=== PATIENT | female | born 1955 | race Caucasian/White ===

== ENCOUNTER → 2018-05-13 09:08 | Outpatient (CLI) | payer OTHER, SELFPAY ==
[2018-05-13 10:17] LABS: Color, Urine Yellow (Yellow); Glucose, Dipstick Normal (Normal); Ketone-Dipstick Negative (Negative); Leukocyte Esterase-Dipstick 25 /ul (Negative); Nitrite-Dipstick Negative (Negative); Occult Blood-Urine Negative /ul (Negative); Protein-Dipstick Negative (Negative); Urine Bilirubin Dipstick Negative (Negative); Urine Clarity Clear (Clear); Urine Urobilinogen Normal (Normal)
[2018-05-13 10:38] LABS: Absolute Lymphocyte Count 1.46 X10^3/ul (0.83-4.51); Absolute Neutrophil Count 6.3 X10^3/uL (2.0-7.7); Basophil# 0.02 X10^3/uL; Basophil% 0.2 % (0-1); Eosinophil# 0.03 X10^3/uL; Eosinophils% 0.4 % (0-5); Hematocrit 44.2 % (37-47); Lymphocyte # 1.46 X10^3/ul (4.0); Lymphocyte % 17.3 % (19-41); Mean Corp Hgb Conc 31.7 g/gl (32-36); Mean Corpuscular Hgb 30.2 pg (27.0-32.0); Mean Corpuscular Volume 95.5 fL (81-99); Mean Platelet Vol. 11.7 fl (6.2-12.0); Monocyte# 0.65 X10^3/uL; Monocyte% 7.7 % (0-10); Neutrophil # 6.29 X10^3/uL (2.7-7.7); Neutrophil % 74.3 % (47-70); Platelet Count 249 K/mm3 (150-450); RBC Distribution Width CV 13.4 % (11.6-14.6); RBC Distribution Width SD 46.7 fl (35.1-43.9); Red Blood Count 4.63 M/mm3 (4.2-5.4); White Blood Count 8.5 K/mm3 (4.4-11.0)
[2018-05-13 10:39] LABS: POSITIVE COUNT NO; POSITIVE DIFFERENTIAL NO; POSITIVE MORPHOLOGY NO
[2018-05-13 10:50] LABS: ALB/GLOB Ratio 1.2 RATIO (0.9-2.4); AST(SGOT) 14 U/L (15-37); Alanine Aminotransfer ALT/SGPT 27 U/L (13-56); Albumin, Serum 3.8 g/dL (3.2-5.0); Alkaline Phosphatase 108 U/L (45-117); Anion Gap 7 (5-15); BUN 11 mg/dL (7-18); Calcium,Total 8.7 mg/dL (8.5-10.1); Chloride 110 mmol/L (98-107); Cholesterol 197 mg/dL (200); Creatinine, Serum 0.78 mg/dL (0.55-1.02); EST Glomerular Filtration Rate 79 mL/min (>60); Est Glom Filt Rate - Afr Amer 96 mL/min (>60); Globulin 3.2 g/dL (2.2-4.2); Glucose 90 mg/dL (74-106); High Density Lipoprotein 87 mg/dL; Potassium 3.8 mmol/L (3.5-5.1); Sodium Level 143 mmol/L (136-145); Triglycerides 51 mg/dL; Very Low Density Lipoprotein 10 mg/dL (5-40)
== END ==
PROVIDERS: Family Provider Family Medicine; PCP Family Medicine; Referring Provider Family Medicine; Visit Provider Family Medicine
DX: Z12.31 Encounter for screening mammogram for malignant neoplasm of breast (principal); Z00.00 Encounter for general adult medical examination without abnormal findings
CPT/HCPCS: 36415; 80053; 80061; 81002; 85025

== ENCOUNTER → 2018-06-20 12:33 | Outpatient (CLI) | payer OTHER, SELFPAY ==
--- NOTE | 2018-06-20 12:37 | BI_ITS ---
MAMMOGRAPHY - BILATERAL SCREENING REASON FOR EXAM: Female, 63 years old. Routine annual screening examination. PERTINENT HISTORY: Aunt with breast cancer. Bilateral breast implants. TECHNIQUE: Digital bilateral breast dagmar (3D mammographic acquisition) in the CC and MLO projections. 2-D mediolateral oblique (MLO) and craniocaudad (CC) views of both breasts were obtained. CAD: Full Field Digital Mammography with Computer Added Detection was performed. COMPARISON: Comparison is made with prior examination dated April 13, 2016 and April 09, 2014. FINDINGS: Breast Composition: There are scattered areas of fibroglandular density. There are no dominant masses or suspicious calcifications. Stable appearance of the bilateral breast implants. No other significant abnormalities are identified. There has been no significant change since the prior study. BI/SCREENING MAMM (CAD), BILAT IMPRESSION: Stable bilateral screening mammogram. Yearly follow-up mammogram recommended. (A) ASSESSMENT CATEGORY: BIRADS Category 2: Benign. A letter regarding these results will be sent to the patient by the facility within 30 days. Approximately 10% of breast cancers are not detected by mammography. A normal mammogram should not delay biopsy of a clinically suspicious abnormality. [id number] Electronically Signed: Moo Shook MD at 13:37 EST , Service support ,
== END ==
PROVIDERS: Family Provider Family Medicine; PCP Family Medicine; Referring Provider Family Medicine; Visit Provider Family Medicine
DX: Z12.31 Encounter for screening mammogram for malignant neoplasm of breast (principal)
CPT/HCPCS: 77063; 77067

== ENCOUNTER 2021-04-12 15:31 | Emergency (ER) | payer OTHER, SELFPAY ==
[2021-04-12 15:32] VITALS: BP 167/91; PULSE 83; RESP 18; TEMP 36.3; O2SAT 100; BMI 25.8
--- NOTE | 2021-04-12 15:36 | ED.RN ---
PT STATED THAT SHE WAS NOT GOING TO WAIT TO BE SEEN SHE WOULD GO HOME AND WALK. PT WALKED OUT OF DEPARTMENT WITH NO ISSUES
== END 2021-04-12 15:40 | disposition left against medical advice (07) ==
LOC: ED 15:47
PROVIDERS: PCP Family Medicine
DX: Z53.21 Procedure and treatment not carried out due to patient leaving prior to being seen by health care provider (principal)

== ENCOUNTER 2021-04-12 17:32 | Inpatient (IN) | payer OTHER, SELFPAY ==
[2021-04-12 17:33] VITALS: BP 95/57; PULSE 85; RESP 17; TEMP 36; O2SAT 100; BMI 25.8
[2021-04-12 17:42] VITALS: BP 95/57; PULSE 85; RESP 17; TEMP 36; O2SAT 100
[2021-04-12 17:59] LABS: Absolute Lymphocyte Count 2.57 X10^3/uL (0.83-4.51); Absolute Neutrophil Count 8.6 X10^3/uL (2.0-7.7); Basophil# 0.07 X10^3/uL; Basophil% 0.6 % (0-1); Eosinophil# 0.29 X10^3/uL; Eosinophils% 2.3 % (0-5); Hemoglobin 14.1 g/dL (12.0-15.0); Lymphocyte # 2.57 X10^3/ul (0.83-4.51); Lymphocyte % 20.5 % (19-41); Mean Corpuscular Hgb 31.1 pg (27.0-32.0); Mean Corpuscular Volume 96.9 fL (81-99); Mean Platelet Vol. 11.8 fl (6.2-12.0); Monocyte# 0.92 X10^3/uL; Monocyte% 7.3 % (0-10); NRBC Flagged by Analyzer 0 % (0-5); Neutrophil # 8.56 X10^3/uL (2.7-7.7); Neutrophil % 68.3 % (47-70); Platelet Count 245 K/mm3 (150-450); RBC Distribution Width CV 13.6 % (11.6-14.6); RBC Distribution Width SD 48.3 fl (35.1-43.9); Red Blood Count 4.54 M/mm3 (4.2-5.4); White Blood Count 12.5 K/mm3 (4.4-11.0)
[2021-04-12 18:15] LABS: ALB/GLOB Ratio 1.1 RATIO (0.9-2.4); AST(SGOT) 221 U/L (15-37); Alanine Aminotransfer ALT/SGPT 330 U/L (13-56); Albumin, Serum 3.6 g/dL (3.2-5.0); Alkaline Phosphatase 342 U/L (45-117); Anion Gap 7 (5-15); BUN 19 mg/dL (7-18); Calcium,Total 9.3 mg/dL (8.5-10.1); Chloride 108 mmol/L (98-107); Creatinine, Serum 0.83 mg/dL (0.55-1.02); EST Glomerular Filtration Rate 74 mL/min (>60); Est Glom Filt Rate - Afr Amer 89 mL/min (>60); Globulin 3.3 g/dL (2.2-4.2); Glucose 124 mg/dL (74-106); Potassium 3.8 mmol/L (3.5-5.1); Protein, Total 6.9 g/dL (6.4-8.2); Sodium Level 142 mmol/L (136-145)
--- NOTE | 2021-04-12 18:43 | CT_ITS ---
STUDY: CT ABDOMEN AND PELVIS WITH CONTRAST REASON FOR EXAM: Female, 66 years old. ABD PAIN RADIATION DOSAGE (If Supplied By Facility): CTDIvol = ( 14.59 ) mGy, DLP = ( 760.26 ) mGycm TECHNIQUE: Transaxial images were obtained from the dome of the diaphragm to the symphysis pubis without oral contrast. Oral and amp; IV Gastrografin and amp; 100mL Isovue-300 was administered. Sagittal and coronal images were reconstructed. Individualized dose optimization techniques were used for this CT. COMPARISON: None. FINDINGS: The visualized lung bases are unremarkable. The visualized portions of the heart are within normal limits. Normal liver. Cholelithiasis within a distended gallbladder. Trace pericholecystic fluid. There is dilatation of the extrahepatic biliary system. Possible stone in the distal common bile duct. Granulomatous calcifications in the spleen. Normal pancreas. Hypoattenuated left adrenal 1 cm nodule. Normal right kidney. Normal left kidney. Normal visualized stomach. Normal small intestine. Diverticulosis of the colon. The appendix is visualized and appears normal. Normal abdominal aorta. Normal inferior vena cava. Normal retroperitoneum. Normal urinary bladder. Normal abdominal wall. Degenerative vertebral changes. Scoliosis. CT/Abdomen/Pelvis WITH Contrast IMPRESSION: Distended gallbladder with cholelithiasis. Trace pericholecystic fluid. Mildly dilated common bile duct with possible choledocholithiasis. Electronically Signed: Antony Otero DO at 20:55 EST Tel [phone], Service support ,
[2021-04-12] MEDS: Morphine 4 MG/ML Syringe IV (18:45)
[2021-04-12] MEDS: Ondansetron 4 MG/2 ML Vial IV (18:45)
[2021-04-12] MEDS: Mag Hydrox/Al Hydrox/Simeth 30 ML UDC PO (18:46)
[2021-04-12 19:19] VITALS: BP 113/81; PULSE 76; RESP 15; O2SAT 98
--- NOTE | 2021-04-12 19:25 | ED.RN ---
WHEN PT ARRIVED SHE AMBULATED INTO THE ER YELLING, GROANING AND REFUSING ANY TYPE OF ASSISTANCE. SHE STATED SHE STATED SHE WAS BACK AND THE PAIN WAS UNBEARABLE. PT REFUSED A WC AND WAS LEAD INTO THE TRIAGE ROOM. PT KEPT PACING AND YELLING THROUGH OUT THE TRIAGE PROCESS. PTS CAME IN DEMANDING SOMETHING BE DONE IMMEDIATELY. EXPLAINED THE PROCESS AND AND WAS HOSTILE AND STATED IT WAS UNACCEPTABLE. WHILE THIS NURSE WAS FINISHING UP THE TRIAGE QUESTIONS, THE MEDIC CAME IN AND STARTED THE IV AND VALENTE BLOODWORK. EXPLAINED TO THE MEDICATION CAN NOT BE GIVEN UNTIL ORDERED BY A PHYSICIAN. REMAINED ANGRY AND PT CONTINUED TO YELL AND REFUSED TO FOLLOW BASIC INSTRUCTIONS. VERBAL ORDER FOR GI COCKTAIL WAS OBTAINED AND GIVEN TO PT. PT WAS NOT HAPPY WITH THIS PLAN. EXPLAINED THIS WAS THE BEST WE ARE ABLE TO DO AT THIS TIME. PT AND WERE INSTRUCTED TO HAVE A SEAT IN THE HALLWAY. PT REFUSED AND ATTEMPTED TO ASSIGNMENT EDITOR THE ENTRANCE WAY AND YELL. EXPLAINED THAT WAS NOT ACCEPTABLE AND THE HRO OFFICER ASSISTED THEM TO A PLACE ALONG THE HALLWAY. SHORTLY THERE AFTER THE PT WAS BACK UP TOWARD THE ENTRANCE IN THE HALLWAY YELLING AND GROANING. IN ADDITION THE PROCEEDED TO TALK NEGATIVELY TO THE PTS AROUND HIM TO THE POINT THAT ANOTHER PT AND FAMILY LEFT WITHOUT BEING SEEN. THIS NURSE APPROACHED THE ASKING WHAT THE CONCERN WAS AND HE STATED THIS WAS TORTURE AND THAT WE DID NOT KNOW WHAT WE WERE DOING. EXPLAINED THE PROCESS AGAIN AT WHICH TIME HE INTERRUPTED. STATED THERE SHOULD BE A TRIAGE IN PLACE AND THAT THERE IS NO WAY ANYONE SHOULD GO BACK BEFORE HIS . AGAIN EXPLAINED TESTING WAS STARTED AND HE RESPONDED STATED EXCUSES ARE FOR LOSERS!. INFORMED THE THEY ARE HERE ON THERE OWN CHOOSING AND THAT OTHER HOSPITALS AROUND ARE IN THE SAME SITUATION. CONTINUED TO CARRY ON WHILE WAS YELLING AND GROANING. AT THIS POINT HRO STEPPED IN AND THIS NURSE WENT BCK TO TRIAGE TO MANAGE THE NEXT PATIENT.
[2021-04-12 20:39] VITALS: BP 130/64; PULSE 82; RESP 18; O2SAT 99
--- NOTE | 2021-04-12 21:01 | EDS_ITS ---
HPI History of Present Illness Chief Complaint: Abd Pain Informant: patient and spouse/S.O. Onset/Context/Timing Onset: Weeks Timing: Waxes and wanes Current Severity: Severe Maximum Severity: Severe Narrative Narrative: Patient presents with epigastric abdominal pain and right upper quadrant pain. Reportedly for the last 2 weeks patient has developed right upper quadrant pain after eating. She ate around 1 PM this afternoon and then developed worsened right upper quadrant pain. She had trouble getting a comfortable position. She denies having fever or chills. She has nausea but no vomiting. She has had diarrhea. PFSH PFSH Medical History no medical history no medical history Allergy/AdvReac Type Severity Reaction Status Date / Time amoxicillin Allergy Hives Verified 04/12/21 15:33 Surgical History no surgical history no surgical history Social History Smoking Status: Never smoker ROS ROS ED Constitutional Constitutional ED: Denies chills or fever(s) Eyes Eyes: Denies change in vision ENT ENT ED: Denies sore throat Cardiovascular Cardiovascular: Denies chest pain Respiratory/Chest Respiratory/Chest: Denies cough or dyspnea Gastrointestinal Gastrointestinal: Reports abdominal pain, diarrhea and nausea; Denies vomiting Genitourinary Genitourinary ED: Denies dysuria Musculoskeletal Musculoskeletal: Denies back pain Integumentary Denies rash Neurologic Neurologic: Denies headache(s) or weakness Allergic/Immunologic Allergic/Immunologic ED: Denies urticaria EXAM Physical Exam Const Vital Signs: 04/12/21 17:33 04/12/21 17:42 04/12/21 19:19 Temperature 96.8 F L 96.8 F L Temperature Source Temporal Temporal Pulse Rate 85 85 76 Respiratory Rate 17 17 15 Blood Pressure 95/57 L 95/57 L 113/81 H Blood Pressure Mean 69 69 91 Pulse Ox 100 100 98 Oxygen Delivery Method Room Air Room Air Room Air 04/12/21 20:39 Temperature Temperature Source Pulse Rate 82 Respiratory Rate 18 Blood Pressure 130/64 H Blood Pressure Mean 86 Pulse Ox 99 Oxygen Delivery Method Room Air Positive well nourished and well developed General Appearance ED: well developed HEENT Reports moist mucous membranes Eyes PERRL and EOMs intact bilaterally Chest Wall inspection of chest normal and palpation of chest normal Resp normal respiratory effort and clear to auscultation bilaterally Cardio regular rate and regular rhythm GI Auscultation: hypoactive bowel sounds Palpation: soft and tender epigastric and RUQ Extremity normal to inspection Neuro oriented x3 Sensorium / Orientation: alert Psych Mood & Affect: anxious Skin no rashes or lesions noted MDM MDM MDM Narrative Medical decision making narrative: Lab work and CT obtained after discussion with From triage. Patient was given GI cocktail as well as morphine and Zofran. Lab Data Attestation: I reviewed the patient's lab results. Labs: Laboratory Results - last 24 hr 04/12/21 04/12/21 17:40 17:40 WBC 12.5 H RBC 4.54 Hgb 14.1 Hct 44.0 MCV 96.9 MCH 31.1 MCHC 32.0 RDW Std Deviation 48.3 H RDW Coeff of Noé 13.6 Plt Count 245 MPV 11.8 Immature Gran % (Auto) 1.000 H Neut % (Auto) 68.3 Lymph % (Auto) 20.5 [place] % (Auto) 7.3 Eos % (Auto) 2.3 Baso % (Auto) 0.6 Absolute Neuts (auto) 8.6 H Absolute Lymphs (auto) 2.57 Nucleated RBC % 0 Sodium 142 Potassium 3.8 Chloride 108 H Carbon Dioxide 27.0 Anion Gap 7 BUN 19 H Creatinine 0.83 Estim Creat Clear Calc 64.10 Est GFR (MDRD) Af Amer 89 Est GFR (MDRD) Non-Af 74 BUN/Creatinine Ratio 23.0 H Glucose 124 H Calcium 9.3 Total Bilirubin 1.90 H AST 221 H ALT 330 H Alkaline Phosphatase 342 H Total Protein 6.9 Albumin 3.6 Globulin 3.3 Albumin/Globulin Ratio 1.1 Radiography Diagnostic Testing: Clinical Impression(s) from Imaging Studies Abdomen/Pelvis CT 04/12/21 18:43 IMPRESSION: Distended gallbladder with cholelithiasis. Trace pericholecystic fluid. Mildly dilated common bile duct with possible choledocholithiasis. Electronically Signed: Antony Otero DO at 20:55 EST Tel [phone], Service support , Treatment and Re-Evaluation Comments:: Lab work reveals elevated white count at 12.[address] scan reveals distended gallbladder with cholelithiasis and trace pericholecystic fluid. Patient does have an allergy to amoxicillin and is therefore given Cipro and Flagyl. I will speak with surgery. Discharge Plan Triage Chief Complaint: Abd Pain ED Provider: Flor Bentley Dx/Rx/DC Orders Clinical Impression: Acute cholecystitis Primary Care Provider: Chava Milton Referrals: Chava Milton MD [Primary Care Provider] - Disposition Disposition: Acute [facility]
--- NOTE | 2021-04-12 21:09 | US_ITS ---
STUDY: ABDOMINAL ULTRASOUND - RIGHT UPPER QUADRANT REASON FOR VISIT: Female, 66 years old cholecystitis TECHNIQUE: Ultrasound evaluation of the right upper quadrant was performed with real-time and static garcia-scale imaging. TECHNICAL QUALITY: Adequate. COMPARISON: None. FINDINGS: Liver: The liver measures 13.5 cm. There is normal echogenicity of the liver. The bile ducts are within normal limits. There is hepatic color flow. The direction of portal flow is hepatopetal. There is no demonstrated mass lesion. Gallbladder: Distended gallbladder. The gallbladder wall measures 3 mm. There is a negative sonographic Green''s sign. There is trace pericholecystic fluid. There are gallstones. Common Bile Duct (C.B.D.): The common bile duct measures 4 mm. Pancreas: Normal size of the head, body and tail of the pancreas. There is normal echogenicity of the pancreas. There is no demonstrated pancreatic mass or cyst. Right Kidney: Normal size of the right kidney. The right kidney measures 10.8 x 4.8 x 4.4 cm. Normal renal cortex. The right cortex measures 1.1 cm. There is no demonstrated renal mass or cyst. There is no right hydronephrosis. US/Gallbladder IMPRESSION: Cholelithiasis. Trace pericholecystic fluid. Electronically Signed: Antony Otero DO at 22:35 EST Tel [phone], Service support ,
[2021-04-12] MEDS: Ciprofloxacin 400 MG/200 ML BAG 200 MG IV (21:43)
[2021-04-12 21:50] LABS: Lipase 99 U/L (73-393)
[2021-04-12 22:10] VITALS: BP 128/74; PULSE 79; RESP 18; TEMP 36.2; O2SAT 99
--- NOTE | 2021-04-12 22:39 | PCM.HP.STD ---
HPI - General General Date of Admission: 04/12/21 HPI Narrative STEVIE HOGAN, is a 66 F who presents to the ER due to epigastric pain, nausea. Patient states she has had episodes after eating for the past 2 to 3 weeks which involved epigastric pain and some nausea along with some abdominal bloating. Patient states she has never had the pain not go away like today. Patient did get some morphine in the ER which she states did not do anything however with some time patient denies any pain currently. Patient had a CT abdomen pelvis showed multiple gallstones along with a dilated extrahepatic biliary duct likely stone in the distal CBD. Ultrasound report pending as well wall appears to be within normal limits the CBD was called within normal limits as well however CT abdomen pelvis reviewed and I personally measured 9 mm. Patient has a white blood cell count of 12.5 and elevated liver functions with a total bilirubin of 1.9 and elevated AST/ALT/alk phos. PFSH Medical History no medical history Allergy/AdvReac Type Severity Reaction Status Date / Time amoxicillin Allergy Hives Verified 04/12/21 15:33 Surgical History (Updated 04/12/21 @ 22:[address] Amada Wallace MD) S/P bilateral breast implants S/P plastic surgery Surgical History no surgical history Social History Smoking Status: Never smoker Vital Signs Vital Signs Vital Signs: 04/12/21 17:33 04/12/21 17:42 04/12/21 19:19 Temperature 96.8 F L 96.8 F L Temperature Source Temporal Temporal Pulse Rate 85 85 76 Respiratory Rate 17 17 15 Blood Pressure 95/57 L 95/57 L 113/81 H Blood Pressure Mean 69 69 91 Pulse Ox 100 100 98 Oxygen Delivery Method Room Air Room Air Room Air 04/12/21 20:39 04/12/21 22:10 Temperature 97.2 F L Temperature Source Temporal Pulse Rate 82 79 Respiratory Rate 18 18 Blood Pressure 130/64 H 128/74 H Blood Pressure Mean 86 92 Pulse Ox 99 99 Oxygen Delivery Method Room Air Room Air Weight Weight: 160 lb Body Mass Index (BMI) 25.8 Physical Exam Const alert, oriented x3 and no apparent distress HEENT normocephalic and head/scalp atraumatic Resp normal respiratory effort Cardio regular rate GI soft to palpation and non-tender; Negative for non-distended Palpation: Negative for guarding Extremity no clubbing, cyanosis or edema Neuro CN's II-XII intact bilaterally Psych mental status grossly normal Results Lab / Micro Data Result Diagrams: 04/12/21 17:40 04/12/21 17:40 Labs: Laboratory Results - last 24 hr 04/12/21 17:40: WBC 12.5 H, RBC 4.54, Hgb 14.1, Hct 44.0, MCV 96.9, MCH 31.1, MCHC 32.0, RDW Std Deviation 48.3 H, RDW Coeff of Noé 13.6, Plt Count 245, MPV 11.8, Immature Gran % (Auto) 1.000 H, Neut % (Auto) 68.3, Lymph % (Auto) 20.5, [place] % (Auto) 7.3, Eos % (Auto) 2.3, Baso % (Auto) 0.6, Absolute Neuts (auto) 8.6 H, Absolute Lymphs (auto) 2.57, Nucleated RBC % 0 04/12/21 17:40: Sodium 142, Potassium 3.8, Chloride 108 H, Carbon Dioxide 27.0, Anion Gap 7, BUN 19 H, Creatinine 0.83, Estim Creat Clear Calc 64.10, Est GFR (MDRD) Af Amer 89, Est GFR (MDRD) Non-Af 74, BUN/Creatinine Ratio 23.0 H, Glucose 124 H, Calcium 9.3, Total Bilirubin 1.90 H, AST 221 H, ALT 330 H, Alkaline Phosphatase 342 H, Total Protein 6.9, Albumin 3.6, Globulin 3.3, Albumin/Globulin Ratio 1.1 04/12/21 17:40: Lipase 99 Micro: Microbiology 04/12/21 21:45 Nasal Secretion SARS-CoV-2 Antigen (Rapid) - Final Radiology Impression Abdomen/Pelvis CT 04/12/21 18:43 IMPRESSION: Distended gallbladder with cholelithiasis. Trace pericholecystic fluid. Mildly dilated common bile duct with possible choledocholithiasis. Electronically Signed: Antony Otero DO at 20:55 EST Tel [phone], Service support , Gallbladder Ultrasound 04/12/21 21:09 IMPRESSION: Cholelithiasis. Trace pericholecystic fluid. Electronically Signed: Antony Otero at 22:35 EST Tel [phone], Service support , Assessment & Plan Assessment/Plan (1) Biliary obstruction: (2) Cholelithiasis: PLAN: Discussed with patient would plan to recheck labs in the morning. Patient may need an ERCP tomorrow and then laparoscopic cholecystectomy the following day. Did briefly describe the procedure of ERCP with patient. Depending on labs in a.m. we will talk with either Dr. Lan or Dr. Appel. We will keep on Cipro/Flagyl due to choledocholithiasis/biliary obstruction, okay for water until 6 AM then n.p.o. Reviewed the anatomy with the patient and discussed the procedure: laparoscopic cholecystectomy with possible cholangiograms, possible open. Review risks including but not limited to bleeding, infection, hernia, bile leak, retained gallstones requiring another procedure ERCP- Endoscopic Retrograde Cholangiopancreatography, injury to another organ (bile ducts, common bile duct, small bowel, etc.) and conversion to an open procedure. 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 Amada Wallace M.D. Pager: [phone] [facility] [address] [place] [address], [address] [place] [address] Office: [phone]
[2021-04-12 23:03] VITALS: BMI 26.3
[2021-04-12 23:34] VITALS: BP 120/75; PULSE 75; RESP 16; TEMP 36.7; O2SAT 99
[2021-04-12] MEDS: 0.9% Saline Lock 10 ML Syringe IV (23:44)
[2021-04-12] MEDS: 0.9% Normal Saline 1,000 ML 125 ML IV (23:44)
[2021-04-12] MEDS: metroNIDAZOLE 500 MG/100 ML BAG 100 MG IV (23:44)
[2021-04-13] VITALS (10 sets, daily range): BP systolic 104–132; BP diastolic 50–72; PULSE 63–90; RESP 16–18; TEMP 36.4–37.2; O2SAT 95–100; BMI 26.3
--- NOTE | 2021-04-13 01:35 | PCS.PANDOC ---
PANDEMIC DOCUMENTATION INITIATED: Date: 12/20/2020 Time: 190
[2021-04-13] MEDS: metroNIDAZOLE 500 MG/100 ML BAG 100 MG IV ×3 (05:25→22:24)
[2021-04-13 05:34] LABS: Absolute Lymphocyte Count 1.05 X10^3/uL (0.83-4.51); Absolute Neutrophil Count 7.9 X10^3/uL (2.0-7.7); Basophil# 0.04 X10^3/uL; Basophil% 0.4 % (0-1); Eosinophil# 0.08 X10^3/uL; Eosinophils% 0.8 % (0-5); Hematocrit 37.5 % (37-47); Hemoglobin 12.1 g/dL (12.0-15.0); Lymphocyte # 1.05 X10^3/ul (0.83-4.51); Lymphocyte % 10.6 % (19-41); Mean Corp Hgb Conc 32.3 g/dL (32-36); Mean Corpuscular Hgb 30.6 pg (27.0-32.0); Mean Corpuscular Volume 94.7 fL (81-99); Mean Platelet Vol. 11.2 fl (6.2-12.0); Monocyte# 0.77 X10^3/uL; Monocyte% 7.8 % (0-10); NRBC Flagged by Analyzer 0 % (0-5); Neutrophil % 79.9 % (47-70); Platelet Count 206 K/mm3 (150-450); RBC Distribution Width CV 13.5 % (11.6-14.6); RBC Distribution Width SD 47.4 fl (35.1-43.9); Red Blood Count 3.96 M/mm3 (4.2-5.4); White Blood Count 9.9 K/mm3 (4.4-11.0)
[2021-04-13 05:51] LABS: AST(SGOT) 253 U/L (15-37); Alanine Aminotransfer ALT/SGPT 371 U/L (13-56); Albumin, Serum 2.9 g/dL (3.2-5.0); Alkaline Phosphatase 278 U/L (45-117); Anion Gap 7 (5-15); BUN 12 mg/dL (7-18); BUN/Creat Ratio 17.1 RATIO (10-20); Bilirubin, Direct 2.48 mg/dL (0.00-0.30); Calcium,Total 8.2 mg/dL (8.5-10.1); Chloride 110 mmol/L (98-107); EST Glomerular Filtration Rate 90 mL/min (>60); Est Glom Filt Rate - Afr Amer 108 mL/min (>60); Estimated Creatinine Clearance 76.01 ml/min; Globulin 2.5 g/dL (2.2-4.2); Glucose 110 mg/dL (74-106); Lipase 66 U/L (73-393); Protein, Total 5.4 g/dL (6.4-8.2); Sodium Level 143 mmol/L (136-145)
--- NOTE | 2021-04-13 06:41 | EKG12_ITS ---
Test Reason : PRE-OP Blood Pressure : / mmHG Vent. Rate : 056 BPM Atrial Rate : 056 BPM P-R Int : 170 ms QRS Dur : 086 ms QT Int : 440 ms P-R-T Axes : 065 056 057 degrees QTc Int : 424 ms Sinus bradycardia Otherwise normal ECG No previous ECGs available Confirmed by AKMILAH FRIEDMAN, JOSE ANGEL ([id number]), editor city [place] [facility] ([id number]) on 04/13/2021 1:59:04 PM Referred By: BHAVIK Confirmed By:JOSE ANGEL TRIANA MD
--- NOTE | 2021-04-13 06:52 | PCM.PN.SRG ---
Subjective Subjective Patient denies abdominal pain., Increased LFTs Objective Data Objective Data Vital Signs: Vital Signs Temp Pulse Resp BP Pulse Ox 98.1 F 68 16 123/67 H 95 04/13/21 05:12 04/13/21 05:12 04/13/21 05:12 04/13/21 05:12 04/13/21 05:12 Oxygen Delivery Method Room Air Weight: 162 lb 14.746 oz Body Mass Index (BMI) 26.3 Intake & Output: Intake and Output for Last 24 Hours 04/11/21 04/12/21 04/13/21 23:59 23:59 23:59 Intake Total 225 / 225 1126.67 / 1126.67 Output Total 1000 / 1000 Balance 225 / 225 126.67 / 126.67 Lab / Micro Data Result Diagrams: 04/14/21 05:55 04/14/21 05:55 Labs: Laboratory Results - last 24 hr 04/12/21 17:40: WBC 12.5 H, RBC 4.54, Hgb 14.1, Hct 44.0, MCV 96.9, MCH 31.1, MCHC 32.0, RDW Std Deviation 48.3 H, RDW Coeff of Noé 13.6, Plt Count 245, MPV 11.8, Immature Gran % (Auto) 1.000 H, Neut % (Auto) 68.3, Lymph % (Auto) 20.5, [place] % (Auto) 7.3, Eos % (Auto) 2.3, Baso % (Auto) 0.6, Absolute Neuts (auto) 8.6 H, Absolute Lymphs (auto) 2.57, Nucleated RBC % 0 04/12/21 17:40: Sodium 142, Potassium 3.8, Chloride 108 H, Carbon Dioxide 27.0, Anion Gap 7, BUN 19 H, Creatinine 0.83, Estim Creat Clear Calc 64.10, Est GFR (MDRD) Af Amer 89, Est GFR (MDRD) Non-Af 74, BUN/Creatinine Ratio 23.0 H, Glucose 124 H, Calcium 9.3, Total Bilirubin 1.90 H, AST 221 H, ALT 330 H, Alkaline Phosphatase 342 H, Total Protein 6.9, Albumin 3.6, Globulin 3.3, Albumin/Globulin Ratio 1.1 04/12/21 17:40: Lipase 99 04/13/21 05:25: WBC 9.9, RBC 3.96 L, Hgb 12.1, Hct 37.5, MCV 94.7, MCH 30.6, MCHC 32.3, RDW Std Deviation 47.4 H, RDW Coeff of Noé 13.5, Plt Count 206, MPV 11.2, Immature Gran % (Auto) 0.500, Neut % (Auto) 79.9 H, Lymph % (Auto) 10.6 L, [place] % (Auto) 7.8, Eos % (Auto) 0.8, Baso % (Auto) 0.4, Absolute Neuts (auto) 7.9 H, Absolute Lymphs (auto) 1.05, Nucleated RBC % 0 04/13/21 05:25: Sodium 143, Potassium 4.0, Chloride 110 H, Carbon Dioxide 26.0, Anion Gap 7, BUN 12, Creatinine 0.70, Estim Creat Clear Calc 76.01, Est GFR (MDRD) Af Amer 108, Est GFR (MDRD) Non-Af 90, BUN/Creatinine Ratio 17.1, Glucose 110 H, Calcium 8.2 L, Total Bilirubin 3.00 H, Direct Bilirubin 2.48 H, AST 253 H, ALT 371 H, Alkaline Phosphatase 278 H, Total Protein 5.4 L, Albumin 2.9 L, Globulin 2.5, Lipase 66 L Micro: Microbiology 04/12/21 21:45 Nasal Secretion SARS-CoV-2 Antigen (Rapid) - Final Radiography Diagnostic Testing: Radiology Impression Abdomen/Pelvis CT 04/12/21 18:43 IMPRESSION: Distended gallbladder with cholelithiasis. Trace pericholecystic fluid. Mildly dilated common bile duct with possible choledocholithiasis. Electronically Signed: Antony Otero DO at 20:55 EST Tel [phone], Service support , Gallbladder Ultrasound 04/12/21 21:09 IMPRESSION: Cholelithiasis. Trace pericholecystic fluid. Electronically Signed: Antony Otero DO at 22:35 EST Tel [phone], Service support , Physical Exam Resp normal respiratory effort Cardio regular rate GI soft to palpation Inspection: Negative for abdominal distention Palpation: tender epigastric and RUQ Assessment & Plan Assessment/Plan (1) Cholelithiasis: (2) Biliary obstruction: PLAN: Patient will need an ERCP today. We will talk with Dr. Edyta Zuñiga for lap rusty tomorrow Amada Wallace M.D. Pager: [phone] [facility] [address] [place] [address], [address] [place] [address] Office: [phone]
[2021-04-13] MEDS: Acetaminophen 325 MG Tablet 650 MG PO ×2 (07:36→18:31)
[2021-04-13] MEDS: Ciprofloxacin 400 MG/200 ML BAG 200 MG IV ×2 (09:34→20:53)
[2021-04-13] MEDS: 0.9% Normal Saline 1,000 ML 125 ML IV ×2 (09:34→17:49)
[2021-04-13] MEDS: 0.9% Saline Lock 10 ML Syringe IV (10:50)
[2021-04-13] MEDS: Ondansetron 4 MG/2 ML Vial IV (10:50)
[2021-04-13] MEDS: Ipratropium/Albuterol Sulfate 3 ML AMPUL.NEB INHALATION (14:46)
--- NOTE | 2021-04-13 15:00 | RAD_ITS ---
ERCP INDICATION: Abdominal pain. Fluoroscopy time: Images obtained: 3 TECHNIQUE: Fluoroscopy the abdomen was utilized in operating room during an ERCP in 3 images are submitted for interpretation. Findings no obvious filling defect to suggest common bile duct stone. IMPRESSION: Fluoroscopy during ERCP. Electronically Signed: Tito Martins MD at 17:15 EST Tel , Service support , RAD/ERCP Biliary/Pancreas
--- NOTE | 2021-04-13 15:07 | PCM.PN.BLA ---
Progress Note Patient had mildly elevated LFTs yesterday when she was admitted and these have increased. CT does show dilated common bile duct and there appears to be a small stone in the distal common bile duct. I discussed ERCP with the patient in detail. I discussed the risks including but not limited to bleeding, infection, perforation of the bile duct or bowel, pancreatitis. Patient understands the risks and will proceed with ERCP this afternoon. I also discussed possibility stent placement. Harry Lan MD Pager: [facility] [address] [place] [address] [place] [address] Office:
[2021-04-13] MEDS: Sugammadex Sodium 200 MG/2 ML VIAL IV (15:30)
--- NOTE | 2021-04-13 15:33 | OP.CCLET_ITS ---
04/13/2021 Chava Milton Re : ERCP procedure for Joy Vital Dear Yoan This procedure was performed on Tuesday, April 13, 2021. My impressions and recommendations are as follows: Impressions : - The major papilla appeared normal. - Choledocholithiasis was found. Complete removal was accomplished by biliary sphincterotomy and balloon extraction. - A biliary sphincterotomy was performed. - The biliary tree was swept. Recommendations : - [facility]. - Continue present medications. My findings are described in the full procedure note, which is enclosed. If I can be of further assistance, please feel free to contact me at Doctor phone number(s): , Work: . Sincerely, Harry Lan MD 04/13/2021 3:33:09 PM This report has been signed electronically.
--- NOTE | 2021-04-13 15:33 | OP.ERCP_ITS ---
Patient Name: Joy Vital Procedure Date: 04/13/2021 2:50 PM Date of : 1955 Age: 66 Procedure: ERCP Indications: Biliary dilation on Computed Tomogram Scan, Elevated liver enzymes Providers: Harry Lan MD Medicines: General Anesthesia Patient Profile: This is a 66 year old female. Refer to note in patient chart for documentation of history and physical. Complications: No immediate complications. Procedure: Pre-Anesthesia Assessment: - Prior to the procedure, a History and Physical was performed, and patient medications and allergies were reviewed. The patient's tolerance of previous anesthesia was also reviewed. The risks and benefits of the procedure and the sedation options and risks were discussed with the patient. All questions were answered, and informed consent was obtained. Prior Anticoagulants: The patient has taken no previous anticoagulant or antiplatelet agents. After reviewing the risks and benefits, the patient was deemed in satisfactory condition to undergo the procedure. After obtaining informed consent, the scope was passed under direct vision. Throughout the procedure, the patient's blood pressure, pulse, and oxygen saturations were monitored continuously. The [id number]/n [id number] endoscope was introduced through the mouth, and advanced to the duodenum and used to inject contrast into the bile duct. The ERCP was accomplished without difficulty. The patient tolerated the procedure well. Scope In: 3:16:35 PM Scope Out: 3:23:33 PM Total Procedure Duration Time 0 hours 6 minutes 58 seconds Findings: The major papilla was normal. A 0.035 inch x 260 cm straight Dreamwire was passed into the biliary tree. The sphincterotome was passed over the guidewire and the bile duct was then deeply cannulated. Contrast was injected. I personally interpreted the bile duct images. Biliary sphincterotomy was made with a monofilament sphincterotome using ERBE electrocautery. There was no post-sphincterotomy bleeding. The biliary tree was swept with a 12 mm balloon starting at the bifurcation. One stone was removed. No stones remained. Impression: - The major papilla appeared normal. - Choledocholithiasis was found. Complete removal was accomplished by biliary sphincterotomy and balloon extraction. - A biliary sphincterotomy was performed. - The biliary tree was swept. Recommendation: - [facility]. - Continue present medications. Procedure Code(s): --- Professional --- 93504, Endoscopic retrograde cholangiopancreatography (ERCP); with removal of calculi/debris from biliary/pancreatic duct(s) 91695, Endoscopic retrograde cholangiopancreatography (ERCP); with sphincterotomy/papillotomy Diagnosis Code(s): --- Professional --- K80.50, Calculus of bile duct without cholangitis or cholecystitis without obstruction R74.8, Abnormal levels of other serum enzymes K83.8, Other specified diseases of biliary tract CPT copyright 2017 [employer]. All rights reserved. The codes documented in this report are preliminary and upon feed blender review may be revised to meet current compliance requirements. Harry Lan MD 04/13/2021 3:33:09 PM This report has been signed electronically. Number of Addenda: 0 Note Initiated On: 04/13/2021 2:50 PM
[2021-04-14] VITALS (15 sets, daily range): BP systolic 106–152; BP diastolic 53–85; PULSE 45–96; RESP 16–18; TEMP 36.2–36.9; O2SAT 92–100; BMI 26.2
[2021-04-14] MEDS: metroNIDAZOLE 500 MG/100 ML BAG 100 MG IV (05:23)
[2021-04-14] MEDS: 0.9% Normal Saline 1,000 ML 75 ML IV (05:33)
[2021-04-14 06:06] LABS: Absolute Lymphocyte Count 0.48 X10^3/uL (0.83-4.51); Absolute Neutrophil Count 5.3 X10^3/uL (2.0-7.7); Basophil# 0.01 X10^3/uL; Basophil% 0.2 % (0-1); Hemoglobin 11.8 g/dL (12.0-15.0); Lymphocyte # 0.48 X10^3/ul (0.83-4.51); Lymphocyte % 7.6 % (19-41); Mean Corp Hgb Conc 31.9 g/dL (32-36); Mean Corpuscular Hgb 30.4 pg (27.0-32.0); Mean Corpuscular Volume 95.4 fL (81-99); Mean Platelet Vol. 11.7 fl (6.2-12.0); Monocyte# 0.43 X10^3/uL; Monocyte% 6.8 % (0-10); NRBC Flagged by Analyzer 0 % (0-5); Neutrophil # 5.33 X10^3/uL (2.7-7.7); Neutrophil % 84.6 % (47-70); POSITIVE DIFFERENTIAL YES; Platelet Count 178 K/mm3 (150-450); RBC Distribution Width SD 49.7 fl (35.1-43.9); Red Blood Count 3.88 M/mm3 (4.2-5.4); White Blood Count 6.3 K/mm3 (4.4-11.0)
[2021-04-14 06:08] LABS: Differential Indicated SCAN CRITERIA MET
[2021-04-14 06:25] LABS: AST(SGOT) 203 U/L (15-37); Alanine Aminotransfer ALT/SGPT 381 U/L (13-56); Albumin, Serum 2.7 g/dL (3.2-5.0); Alkaline Phosphatase 271 U/L (45-117); Anion Gap 5 (5-15); BUN 7 mg/dL (7-18); Bilirubin, Direct 3.37 mg/dL (0.00-0.30); Calcium,Total 8.5 mg/dL (8.5-10.1); Chloride 115 mmol/L (98-107); EST Glomerular Filtration Rate 90 mL/min (>60); Est Glom Filt Rate - Afr Amer 109 mL/min (>60); Estimated Creatinine Clearance 76.01 ml/min; Globulin 2.8 g/dL (2.2-4.2); Glucose 124 mg/dL (74-106); Protein, Total 5.5 g/dL (6.4-8.2); Sodium Level 144 mmol/L (136-145)
[2021-04-14 06:40] LABS: Differential Comment SCANNED
[2021-04-14] MEDS: Ipratropium/Albuterol Sulfate 3 ML AMPUL.NEB INHALATION (07:18)
--- NOTE | 2021-04-14 07:30 | GALL_PTH ---
PATIENT: STEVIE HOGAN LOC: [facility]3 U#:[id number] AGE/SX: 66/F ROOM: AK320 RE04/12/[address]: Dr. Amada Wallace MD : 1955 BED: 1 DIS: 04/14/2021 SPEC #: [id number] RECD: 04/14/21 11:09 STATUS: NILO GIANG #: [id number] KACIE: 04/14/21 07:[address]: Amada Wallace DEPT: SURGICAL PATHOLOGY RECD BY: Precious Gentile ENTERED: 04/14/21 13:08 SP TYPE: HENRIQUE RSOE DR: Dr. Chava Milton MD Tissues: Gallbladder, NOS Procedures: Surgery Specimen Level III HEADER OPERATION: Laparoscopic cholecystectomy with IOC PRE-OP DIAGNOSIS: Cholelithiasis, biliary obstruction TISSUE SUBMITTED: Gallbladder MICROSCOPIC DIAGNOSIS Gallbladder, cholecystectomy: Chronic cholecystitis and cholelithiasis. Focal intestinal metaplasia. AM:opal 04/15/2021 MICROSCOPIC DESCRIPTION Slides are reviewed. GROSS DESCRIPTION Received is one container labeled with the patient's name and designated gallbladder. The specimen consists of a previously opened gallbladder measuring 7 x 3 x 2 cm. The external surface is smooth and glistening. Focally, it is granular, hemorrhagic and contains cautery artifact. The lumen of the gallbladder contains yellow-green mucoid bile and multiple black calculi ranging in size from 0.1 to 1.5 cm in greatest dimension. The mucosa is bile-stained and without any mass lesions. The gallbladder wall averages 0.2 cm in thickness and is free of mass lesions. Sole Sewer Hand sections of the gallbladder and the cystic duct at margin of resection are submitted in one cassette. / AM:opal 04/14/21 TC:3 CPT: 61755
--- NOTE | 2021-04-14 07:50 | RAD_ITS ---
STUDY: INTRAOPERATIVE CHOLANGIOGRAM. REASON FOR EXAM: Female, 66 years old. Laparoscopic cholecystectomy. FLUOROSCOPY TIME (if supplied): ( 8.8 seconds ) minutes/seconds. A cine loop of 31 images was submitted. TECHNIQUE: Intraoperative Cholangiogram was performed by the surgeon. Imaging was submitted. COMPARISON: None. FINDINGS: The intrahepatic biliary ducts are unremarkable. The common bile duct is not dilated. No intraluminal filling defect is seen. There is free flow of contrast into the duodenum. RAD/Cholangiogram/ O R,Initial IMPRESSION: Unremarkable intraoperative cholangiogram. Electronically Signed: Moo Shook MD at 12:09 EST , Service support ,
[2021-04-14] MEDS: Bupivacaine Mpf 0.5% 30 ML VIAL (08:55)
--- NOTE | 2021-04-14 08:58 | OP.PCM_ITS ---
Report of Operation Date of Procedure: 04/14/21 Pre-Operative Diagnosis: Acute cholecystitis, choledocholithiasis Post-Operative Diagnosis: Acute cholecystitis Surgery/Procedure Performed:: Laparoscopic cholecystectomy with cholangiograms Surgeon: Amada Wallace equipment service associate: Alisha May Type of Anesthesia: General/Supplemental Anesthesiologist: Jass Mckinney Special Medications: Patient on Cipro Flagyl IV on the floor for acute cholecystitis. Specimen's removed: Gallbladder and stones Estimated Blood Loss (mL): 10 CC Description of Procedure: Indications this is a 66 year-old female who developed abdominal pain/nausea/vomiting and on workup was found to have cholelithiasis, elevated liver functions status post ERCP yesterday. Laparoscopic cholecystectomy was elected. Description procedure: The patient was placed on operating table in supine pos ition. General Anesthesia was induced. A timeout was completed verifying correct patient, procedure, site, position and special equipment prior to beginning procedure. The abdomen was prepped and draped in usual sterile fashion. An incision was made in the natural skin line below the umbilicus. The fascia was elevated and incised. The peritoneum was elevated and incised. Entry into the peritoneum was confirmed visually and no bowel was noted in the vicinity of the incision. Meyer trocar was placed. The abdomen was insufflated with carbon dioxide to a pressure of 12-15 mmHg. Patient tolerated insufflation well. The laparoscope was then inserted and abdomen inspected. No injuries from initial trocar placement were noted. Additional trochars were then inserted in the following locations 5 mm trocar in the epigastrium and 2 more 5 mm trochars along the right costal margin. The abdomen was inspected no abnormalities were found. The table is placed in reverse Trendelenburg position with the right side up. The adhesions between the gallbladder and omentum were lysed sharply. The dome of the gallbladder was grasped with atraumatic grasper passed through the lateral port and retracted over the dome of the liver. Infundibulum was then grasped with atraumatic grasper through the midclavicular port and retracted to the right lower quadrant. This maneuver exposed Calot's triangle. The peritoneum overlying the gallbladder infundibulum was then incised and cystic duct and artery identified and circumferentially dissected. Francis catheter was used for cholangiograms. The cholangiogram showed good filling of the common bile duct into the duodenum with no filling defects, good filling of the right and left bile ducts as well. The cystic duct and artery were then doubly clipped and divided close to the gallbladder. The gallbladder then dissected from its peritoneal attachments by electrocautery. Hemostasis was checked and the gallbladder and contained stones were removed using the endoscopic retrieval bag through the umbilical port. The gallbladder is passed off table as specimen. The gallbladder fossa was copiously irrigated with saline and hemostasis obtained. There is no evidence of bleeding from the gallbladder fossa or cystic artery leakage of bile from the cystic duct stump. Secondary trochars removed under direct vision. No bleeding was noted the trocar sites. The laparoscope was withdrawn and umbilical trocar removed. The abdomen was allowed to collapse. The fascia of the 12 mm trocar was closed with a [id number] 0 Vicryl suture in interrupted 0 Vicryl suture as it had to be enlarged slightly to remove the gallbladder and stones. The skin was closed with sutures of 4-0 Monocryl and Steri-Strips. The orogastric tube was removed and the patient was extubated. The patient tolerated procedure well and was taken to the postanesthesia care unit in stable condition. Complications None
--- NOTE | 2021-04-14 09:01 | EX.PCM.DISCH ---
Discharge Instructions Diet Discharge Diet: Light diet - advance as tolerated Activity Discharge Activity: May Not Drive (while taking narcotic pain medications.) May shower in (days): 1 Lifting Restrictions: no lifting >20 lbs x 2 wks, no strenuous exercise for 4 wks Dressing / Incision Call your doctor if your incision/area has: Continuous Slow Oozing, Sudden Increased Bleeding, Increased Pain/ Swelling, Increased Redness, Foul Smelling Discharge and Swelling at the incision site Call your doctor if you observe: Fever of 101 or Higher Remove Dressing in: 2 days Cleanse incision/area with: Soap & Water Additional Dressing/Incision Instructions:: Steri-Strips will fall off in 7 to 10 days, if they do not fall off okay to remove after 10 days. Follow Up Care Please Follow Up With: Amada Wallace MD When: Call the office for a follow-up appointment 2 weeks; after 5 PM and on the weekends call [phone] with any concerns. Test Results: Test results from this visit will be discussed in further detail at your follow-up appointment, if applicable. Discharge Plan Admission Admit Date/Time: 04/12/21 21:51 Attending Provider: Amada Wallace Primary Care Provider: Chava Milton Discharge Orders/Prescriptions Prescriptions: New oxycodone-acetaminophen [Percocet] 5-325 mg tablet 1 - 2 tab PO Q6H PRN (Reason: pain) 5 Days Qty: 20 RF: 0 Referrals / Follow Up: Chava Milton MD [Primary Care Provider] - Disposition Disposition (needs filled in before D/C Order can be placed): Home, Self Care
--- NOTE | 2021-04-14 09:31 | NURSING ---
pt remains off unit in OR area
[2021-04-14] MEDS: Ciprofloxacin 400 MG/200 ML BAG 200 MG IV (09:45)
--- NOTE | 2021-04-14 11:35 | CASEMGMT ---
RN [employer] CM to room to meet with patient for initial transition planning/care coordination assessment. SRIKANTH MANCIA introduced self and role at [facility]. Pt voices understanding and consents to assessment at this time. Pt resting in bed in no distress at this time. Pt is A/O at this time and answers all questions appropriately. Care providers, pharmacy, and demographics verified/updated at this time. PCP: Dr Milton Specialists: none Preferred Pharmacy: [facility] Retail Insurance: [employer] Prescription Benefit: Yes Living Will/HPOA: Has both LW and HPOA who is her . LNOK: , [place] Living Arrangements: Lives w/her in 2-story home, 2 steps to enter. Denies difficulty w/stairs. Independent. Retired Transportation: Pt states drives self and states no transportation concerns at this time. also drives DME: Denies using any DME and denies needs. HHC/SNF: No hx of either. Denies needs and no needs identified. Pt wishes to return home and states has no concerns with going home at time of discharge. CM to follow for any discharge planning/needs. Pt voices no concerns/needs at this time. Advised pt to ask for CM if any questions/concerns/needs arise. Voices understanding. PLAN: Home Ashish DANIELS RN, CM
[2021-04-14] MEDS: Acetaminophen 325 MG Tablet 650 MG PO (15:31)
[2021-04-14] MEDS: oxyCODONE 5 MG Tablet PO (15:31)
== END 2021-04-14 16:22 | disposition home or self-care (01) | DRG 419 ==
LOC: ED 21:54 → MS3 22:18
PROVIDERS: Surgery; Admitting Provider Surgery; Emergency Provider Emergency Medicine; PCP Family Medicine; Visit Provider Surgery
PROC: 0FC98ZZ Extirpation of Matter from Common Bile Duct, Via Natural or Artificial Opening Endoscopic (ICD-10-PCS; CPT 43260; principal; 2021-04-13 14:45)
PROC: 0FT44ZZ Resection of Gallbladder, Percutaneous Endoscopic Approach (ICD-10-PCS; CPT 47610; principal; 2021-04-14 07:10)
DX: K80.67 Calculus of gallbladder and bile duct with acute and chronic cholecystitis with obstruction (principal); K66.0 Peritoneal adhesions (postprocedural) (postinfection); R94.5 Abnormal results of liver function studies
CPT/HCPCS: 36415; 74177; 74300; 74330; 76000; 76705; 80048; 80053; 80076; 83690; 85025; 87426; 88304; 93005; 94640; 99251; 99284; J7030; Q9967; A4216; G0463; J0744; J2405

== ENCOUNTER → 2021-11-04 | Outpatient (CLI) | payer OTHER, SELFPAY ==
[2021-11-04 12:37] LABS: Absolute Lymphocyte Count 1.42 X10^3/uL (0.83-4.51); Absolute Neutrophil Count 10.9 X10^3/uL (2.0-7.7); Basophil# 0.02 X10^3/uL; Basophil% 0.2 % (0-1); Eosinophil# 0.03 X10^3/uL; Eosinophils% 0.2 % (0-5); Hematocrit 43.2 % (37-47); Lymphocyte # 1.42 X10^3/ul (0.83-4.51); Lymphocyte % 10.8 % (19-41); Mean Corp Hgb Conc 32.4 g/dL (32-36); Mean Corpuscular Hgb 31.7 pg (27.0-32.0); Mean Platelet Vol. 11.9 fl (6.2-12.0); Monocyte# 0.77 X10^3/uL; Monocyte% 5.8 % (0-10); NRBC Flagged by Analyzer 0 % (0-5); Neutrophil # 10.86 X10^3/uL (2.7-7.7); Neutrophil % 82.4 % (47-70); Platelet Count 218 K/mm3 (150-450); RBC Distribution Width CV 13.3 % (11.6-14.6); RBC Distribution Width SD 48.1 fl (35.1-43.9); Red Blood Count 4.41 M/mm3 (4.2-5.4); White Blood Count 13.2 K/mm3 (4.4-11.0)
[2021-11-04 13:07] LABS: ALB/GLOB Ratio 1.2 RATIO (0.9-2.4); AST(SGOT) 13 U/L (15-37); Alanine Aminotransfer ALT/SGPT 22 U/L (13-56); Albumin, Serum 3.4 g/dL (3.2-5.0); Alkaline Phosphatase 72 U/L (45-117); Anion Gap 7 (5-15); BUN 15 mg/dL (7-18); BUN/Creat Ratio 21.2 RATIO (10-20); Calcium,Total 8.8 mg/dL (8.5-10.1); Chloride 109 mmol/L (98-107); Cholesterol 196 mg/dL (200); Creatinine, Serum 0.71 mg/dL (0.55-1.02); EST Glomerular Filtration Rate 88 mL/min (>60); Est Glom Filt Rate - Afr Amer 107 mL/min (>60); Globulin 2.9 g/dL (2.2-4.2); Glucose 100 mg/dL (74-106); High Density Lipoprotein 90 mg/dL; Protein, Total 6.3 g/dL (6.4-8.2); Sodium Level 142 mmol/L (136-145); Triglycerides 36 mg/dL; Very Low Density Lipoprotein 7 mg/dL (5-40)
== END | disposition home or self-care (01) ==
LOC: MTLAB 08:51
PROVIDERS: PCP Family Medicine; Referring Provider Family Medicine; Visit Provider Family Medicine
DX: Z00.00 Encounter for general adult medical examination without abnormal findings (principal); Z13.6 Encounter for screening for cardiovascular disorders
CPT/HCPCS: 36415; 80053; 80061; 85025

== ENCOUNTER → 2021-11-23 | Outpatient (CLI) | payer OTHER, SELFPAY ==
--- NOTE | 2021-11-23 12:48 | BI_ITS ---
MAMMOGRAPHY - BILATERAL SCREENING REASON FOR EXAM: Female, 66 years old. Routine annual screening examination. PERTINENT HISTORY: Aunt with breast cancer. Bilateral breast implants. TECHNIQUE: Digital bilateral breast earle (3D mammographic acquisition) in the CC and MLO projections. 2-D mediolateral oblique (MLO) and craniocaudad (CC) views of both breasts were obtained. CAD: Full Field Digital Mammography with Computer Added Detection was performed. COMPARISON: Comparison is made with prior study dated 06/20/2018 and 04/13/2016. FINDINGS: Breast Composition: There are scattered areas of fibroglandular density. There are no dominant masses or suspicious calcifications. Stable appearance of the bilateral breast implants. No other significant abnormalities are identified. There has been no significant change since the prior study. BI/SCRN MAMM (CAD)W/EARLE BILAT IMPRESSION: Stable bilateral screening mammogram. Yearly follow-up mammogram recommended. (A) ASSESSMENT CATEGORY: BIRADS Category 2: Benign. A letter regarding these results will be sent to the patient by the facility within 30 days. Approximately 10% of breast cancers are not detected by mammography. A normal mammogram should not delay biopsy of a clinically suspicious abnormality. [id number] Electronically Signed: Moo Shook MD at 13:44 EDT ,
== END | disposition home or self-care (01) ==
LOC: OPBI 12:45
PROVIDERS: PCP Family Medicine; Visit Provider Family Medicine
DX: Z12.31 Encounter for screening mammogram for malignant neoplasm of breast (principal); Z80.3 Family history of malignant neoplasm of breast; Z98.82 Breast implant status
CPT/HCPCS: 77063; 77067

== ENCOUNTER 2022-02-08 09:42 | Emergency (ER) | payer MEDICARE, SELFPAY ==
[2022-02-08 09:43] VITALS: BP 141/97; PULSE 97; RESP 18; TEMP 36.6; O2SAT 100; BMI 26.6
--- NOTE | 2022-02-08 10:14 | CT_ITS ---
STUDY: CT ABDOMEN AND PELVIS WITH CONTRAST REASON FOR EXAM: Female, 67 years old. rlq abdominal pain RADIATION DOSAGE (If Supplied By Facility): CTDIvol = ( 15.24 ) mGy, DLP = ( 789. ) mGycm TECHNIQUE: Transaxial images were obtained from the dome of the diaphragm to the symphysis pubis without oral contrast. IV 100mL Isovue-300 was administered. Sagittal and coronal images were reconstructed. Individualized dose optimization techniques were used for this CT. COMPARISON: Comparison is made with prior study dated 04/12/2021. FINDINGS: There is evidence of bilateral breast prostheses. Calcified granuloma in the medial aspect of the right lower lobe this is unchanged. The visualized portions of the heart are within normal limits. Normal liver. The patient is status post cholecystectomy. There are multiple benign calcified granulomata of the spleen. Normal pancreas. Stable 2.5 cm x 1.4 cm hypodense nodule in the left adrenal gland suggestive of a adrenal adenoma. Normal right kidney. Normal left kidney. Normal visualized stomach. Normal small intestine. Diffuse inflammatory changes with thickening of the rectosigmoid colon in keeping with the colitis. Scattered sigmoid diverticula are seen. The appendix is visualized and appears normal. Normal abdominal aorta. Normal inferior vena cava. Normal retroperitoneum. Normal urinary bladder. Normal abdominal wall. There are diffuse degenerative changes of the visualized lumbar spine. Dextroscoliosis. CT/Abdomen/Pelvis W IV Cont ONLY IMPRESSION: Colitis affecting the rectosigmoid colon with evidence of diverticular disease and pericolonic inflammatory changes. Electronically Signed: Moo Shook MD at 11:21 EDT ,
--- NOTE | 2022-02-08 10:22 | EDS_ITS ---
HPI HPI - GI History of Present Illness Chief Complaint: Abd Pain Narrative Narrative: 67-year-old female presenting with periumbilical and right lower quadrant pain. She states this started last evening. She states it was pretty persistent last evening but is now periodic. It comes and goes. She describes it as sharp in the umbilical region. She states that she feels like she has a lot of gas buildup in her abdomen but she is only able to burp. He states her last normal bowel movement was last evening. Today she states she had 1 episode of a loose stool which she describes as a squirt. She is not had any black or bloody stool. She is nauseous without vomiting. She has not had a fever but admits to chills and sweats with the pain. Patient states she had her gallbladder removed in April after having acute cholecystitis. This was performed by Dr. Walalce. She had an ERCP by Dr. Lan at that time. She reports no other abdominal surgeries. She states she has no medical problems otherwise. She is usually healthy. No urinary or vaginal complaints. [facility] Medical History Alcohol abuse Asthma Home Medications ciprofloxacin HCl 500 mg tablet (Cipro) 500 mg PO BID #20 tabs 02/08/22 [Rx Last Taken Unknown] hydrocodone-acetaminophen 5-325mg 5mg-325mg 1 tab PO Q6H PRN pain 3 days #12 tabs 02/08/22 [Rx Last Taken Unknown] mesalamine 1.2 gram tablet,delayed release 2.4 g PO BID 10 days #40 tabs 02/08/22 [Rx Last Taken Unknown] metronidazole 500 mg tablet 500 mg PO Q8H 10 days #30 tabs 02/08/22 [Rx Last Taken Unknown] ondansetron 4 mg disintegrating tablet 4 mg PO Q8H PRN nausea and vomiting #14 tabs 02/08/22 [Rx Last Taken Unknown] Allergy/AdvReac Type Severity Reaction Status Date / Time amoxicillin Allergy Hives, Verified 02/08/22 09:45 tongue swelling Surgical History S/P bilateral breast implants S/P ERCP S/P laparoscopic cholecystectomy S/P plastic surgery Social History Smoking Status: Never smoker ROS ROS ED Review of Systems ROS Unobtainable: Denies due to encephalopathy Constitutional Constitutional ED: Reports chills and sweats ENT ENT ED: Denies rhinorrhea or sore throat Cardiovascular Cardiovascular: Denies chest pain or palpitations Respiratory/Chest Respiratory/Chest: Denies cough or dyspnea Gastrointestinal Gastrointestinal: Reports abdominal pain, constipation, diarrhea and nausea; Denies vomiting Genitourinary Genitourinary ED: Denies dysuria or hematuria Musculoskeletal Musculoskeletal: Denies arthralgias or back pain Integumentary Denies abscess or Abrasions Neurologic Neurologic: Denies headache(s) or paresthesias Psychiatric Psychiatric: Denies anxiety or depression EXAM Physical Exam Const Vital Signs: 02/08/22 09:43 Temperature 97.9 F Temperature Source Temporal Pulse Rate 97 Respiratory Rate 18 Blood Pressure 141/97 H Blood Pressure Mean 111 Pulse Ox 100 Oxygen Delivery Method Room Air Positive well nourished General Appearance ED: NAD and pallor HEENT Reports moist mucous membranes Eyes PERRL and EOMs intact bilaterally General Eye ED: Negative for pale conjunctiva or scleral icterus Resp normal respiratory effort and clear to auscultation bilaterally Cardio regular rate and regular rhythm GI Palpation: soft and tender RLQ and periumbilical Back/Spine no CVA tenderness Extremity full ROM Neuro CN's II-XII intact bilaterally and moves all extremities Sensorium / Orientation: alert Motor Exam: strength 5/5 throughout Psych mental status grossly normal and thought process normal Skin General Skin Exam: jaundice and pallor MDM MDM MDM Narrative Medical decision making narrative: Patient presenting with right lower quadrant and periumbilical pain which started last evening. Vital signs are stable and she is afebrile. She is offered pain medication but declines because she states she does not like pain medication. She is amenable to getting some Zofran for her nausea. Patient later stated she wanted something for pain and I gave her for morphine and she has been pain-free since then. CBC obtained and shows a leukocytosis of 16.9 with a slight left shift. Hemoglobin 14.6, hematocrit 43.9, platelets 231. Renal function and electrolytes within normal limits. Total bilirubin is 1.2 but this has been elevated in the past. AST and ALT are normal. Lipase negative. Urinalysis negative for infection. Did obtain a CT of the abdomen pelvis with IV contrast which shows colitis affecting the rectosigmoid colon with evidence of diverticular disease and pericolonic inflammatory changes. Because of the elevated white blood cell count I did speak with Dr. Apple. We reviewed her lab work and her CT. She has normal vital signs and her pain is well controlled so we believe she can be discharged home. He recommended treating her with Cipro and Flagyl for 10 days. When she finishes this course she is to take mesalamine 1.2 g twice daily. She can follow-up with Dr. Apple's office. Return precautions were discussed. Patient will be given Norc o and Zofran in addition to this to help with pain and nausea. Impression: 1. Abdominal pain 2. Colitis 3. Nausea 4. Diarrhea 5. Leukocytosis ? Lab Data Attestation: I reviewed the patient's lab results. Labs: Laboratory Results - last 24 hr 02/08/22 02/08/22 02/08/22 09:56 09:56 10:30 WBC 16.9 H RBC 4.62 Hgb 14.6 Hct 43.9 MCV 95.0 MCH 31.6 MCHC 33.3 RDW Std Deviation 45.1 H RDW Coeff of Noé 12.9 Plt Count 231 MPV 11.3 Immature Gran % (Auto) 0.900 Neut % (Auto) 79.1 H Lymph % (Auto) 10.7 L Jay % (Auto) 8.0 Eos % (Auto) 0.9 Baso % (Auto) 0.4 Absolute Neuts (auto) 13.4 H Absolute Lymphs (auto) 1.81 Nucleated RBC % 0 Sodium 140 Potassium 3.6 Chloride 107 Carbon Dioxide 25.0 Anion Gap 8 BUN 14 Creatinine 0.76 Estim Creat Clear Calc 69.09 Est GFR (MDRD) Af Amer 98 Est GFR (MDRD) Non-Af 81 BUN/Creatinine Ratio 18.4 Glucose 94 Calcium 9.1 Total Bilirubin 1.20 H AST 12 L ALT 18 Alkaline Phosphatase 82 Total Protein 6.9 Albumin 3.4 Globulin 3.5 Albumin/Globulin Ratio 1.0 Lipase 87 Urine Color Yellow Urine Clarity Clear Urine pH 6.0 Ur Specific [place] 1.020 Urine Protein 15 H Urine Glucose (UA) Normal Urine Ketones 15 H Urine Occult Blood 25 H Urine Nitrite Negative Urine Bilirubin Negative Urine Urobilinogen Normal Ur Leukocyte Esterase 25 H Urine RBC 0-5 SEEN Urine WBC 0-5 SEEN Ur Squamous Epith Cells 0-5 SEEN Urine Bacteria RARE Urine Mucus 0 SEEN Radiography Diagnostic Testing: Clinical Impression(s) from Imaging Studies Abdomen/Pelvis CT 02/08/22 10:14 IMPRESSION: Colitis affecting the rectosigmoid colon with evidence of diverticular disease and pericolonic inflammatory changes. Electronically Signed: Moo Shook MD at 11:21 EDT , Discharge Plan Triage Chief Complaint: Abd Pain ED Provider: Polo Whiting Dx/Rx/DC Orders Instructions: ED Understanding Colitis Prescriptions: New ciprofloxacin HCl [Cipro] 500 mg tablet 500 mg PO BID Qty: 20 0RF metronidazole 500 mg tablet 500 mg PO Q8H 10 Days Qty: 30 0RF ondansetron 4 mg tablet,disintegrating 4 mg PO Q8H PRN (Reason: nausea and vomiting) Qty: 14 0RF hydrocodone-acetaminophen 5-325 mg tablet 1 tab PO Q6H PRN (Reason: pain) 3 Days Qty: 12 0RF mesalamine 1.2 gram tablet,delayed release (DR/EC) 2.4 g PO BID 10 Days Qty: 40 0RF Primary Care Provider: Chava Milton Referrals: Mina Apple DO [Med Staff - Active Staff] - 3-5 Days Chava Milton MD [Primary Care Provider] - Disposition Disposition: Home, Self Care
[2022-02-08 10:23] LABS: Absolute Lymphocyte Count 1.81 X10^3/uL (0.83-4.51); Absolute Neutrophil Count 13.4 X10^3/uL (2.0-7.7); Basophil# 0.07 X10^3/uL; Basophil% 0.4 % (0-1); Eosinophil# 0.15 X10^3/uL; Eosinophils% 0.9 % (0-5); Hematocrit 43.9 % (37-47); Hemoglobin 14.6 g/dL (12.0-15.0); Lymphocyte # 1.81 X10^3/ul (0.83-4.51); Lymphocyte % 10.7 % (19-41); Mean Corp Hgb Conc 33.3 g/dL (32-36); Mean Corpuscular Hgb 31.6 pg (27.0-32.0); Mean Platelet Vol. 11.3 fl (6.2-12.0); Monocyte# 1.36 X10^3/uL; NRBC Flagged by Analyzer 0 % (0-5); Neutrophil # 13.38 X10^3/uL (2.7-7.7); Neutrophil % 79.1 % (47-70); Platelet Count 231 K/mm3 (150-450); RBC Distribution Width CV 12.9 % (11.6-14.6); RBC Distribution Width SD 45.1 fl (35.1-43.9); Red Blood Count 4.62 M/mm3 (4.2-5.4); White Blood Count 16.9 K/mm3 (4.4-11.0)
[2022-02-08] MEDS: Ondansetron 4 MG/2 ML Vial IV (10:32)
[2022-02-08 10:40] LABS: Mucous, Urine 0 SEEN /hpf (<or=2+)
[2022-02-08 10:41] LABS: Color, Urine Yellow (Yellow); Glucose, Dipstick Normal (Normal); Ketone-Dipstick 15 mg/dl (Negative); Leukocyte Esterase-Dipstick 25 /ul (Negative); Nitrite-Dipstick Negative (Negative); Occult Blood-Urine 25 /ul (Negative); Protein-Dipstick 15 mg/dl (Negative); Urine Bilirubin Dipstick Negative (Negative); Urine Clarity Clear (Clear); Urine Urobilinogen Normal (Normal)
[2022-02-08 10:43] LABS: AST(SGOT) 12 U/L (15-37); Alanine Aminotransfer ALT/SGPT 18 U/L (13-56); Albumin, Serum 3.4 g/dL (3.2-5.0); Alkaline Phosphatase 82 U/L (45-117); Anion Gap 8 (5-15); BUN 14 mg/dL (7-18); BUN/Creat Ratio 18.4 RATIO (10-20); Calcium,Total 9.1 mg/dL (8.5-10.1); Chloride 107 mmol/L (98-107); Creatinine, Serum 0.76 mg/dL (0.55-1.02); EST Glomerular Filtration Rate 81 mL/min (>60); Est Glom Filt Rate - Afr Amer 98 mL/min (>60); Estimated Creatinine Clearance 69.09 ml/min; Globulin 3.5 g/dL (2.2-4.2); Glucose 94 mg/dL (74-106); Lipase 87 U/L (73-393); Potassium 3.6 mmol/L (3.5-5.1); Protein, Total 6.9 g/dL (6.4-8.2); Sodium Level 140 mmol/L (136-145)
[2022-02-08] MEDS: Morphine 4 MG/ML Syringe IV (10:54)
[2022-02-08] MEDS: 0.9% Normal Saline 1,000 ML 999 ML IV (10:54)
[2022-02-08 10:56] LABS: White Blood Cells 0-5 SEEN /hpf (0-5)
[2022-02-08 10:57] LABS: Bacteria RARE /hpf (None Seen); Red Blood Cells-Urine 0-5 SEEN /hpf (0-5); Squamous Epithelial Cells - UA 0-5 SEEN /hpf (5-10)
[2022-02-08] MEDS: Ciprofloxacin 500 MG Tablet PO (11:56)
[2022-02-08] MEDS: metroNIDAZOLE 500 MG Tablet PO (11:56)
[2022-02-08 12:02] VITALS: PULSE 78; RESP 16
== END 2022-02-08 12:03 | disposition home or self-care (01) ==
PROVIDERS: Emergency Provider Student in an Organized Health Care Education/Training Program; PCP Family Medicine; Visit Provider Student in an Organized Health Care Education/Training Program
DX: K52.9 Noninfective gastroenteritis and colitis, unspecified (principal); Z90.49 Acquired absence of other specified parts of digestive tract
CPT/HCPCS: 74177; 80053; 81001; 83690; 85025; 96361; 96374; 96375; 99284; J7030; Q9967; A4216; J2405

== ENCOUNTER 2023-05-08 08:03 | Day surgery (SDC) | payer MEDICARE, SELFPAY ==
[2023-05-08 08:25] VITALS: BP 127/86; PULSE 92; RESP 18; TEMP 36.4; O2SAT 98; BMI 27.3
--- OUTSIDE RECORDS SUMMARY | 2023-05-08 08:30 | XMS RPT_ITS | CCD ---
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 Name Role Phone Unavailable Primary Care Provider UnavailAZ Pritchard Attending Unavailable MICHAEL CAMEJO Attending Unavailable MATTY BECKER Primary Care Unavailable Matty Becker Primary Care Provider [phone] Allergies Allergy Classification Reported Allergen(s) Allergy Type Date of Onset Reaction(s) Facility (1 source) Penicillins; Translations: [PENICILLINS] Propensity to adverse reactions to drug (disorder) 7 [facility] Repository Medications Completed/Discontinued Medications Medication Drug Class(es) Dates Sig (Normalized) Sig (Original) prednisoLONE 3 mg/ml oral solution (2 sources) Corticosteroid Start: 11-22-2021 prednisoLONE (PRELONE) 15 mg/5 mL syrup TAKE 5 ML TWO TIMES DAILY 300 mL 5 11/22/2021 Active Problems Problem Classification Problem Date Documented Da te Episodic/Chronic Other female genital disorders (1 source) Polyp of cervix uteri; Translations: [Polyp of cervix uteri] Onset: 05-10-2022 Episodic Results Test Name Value Interpretation Reference Range Facil ity Encounters Encounter Date Encounter Type Care Provider Facility Start: 06-06-2022 End: 06-06-2022 ambulatory MICHAEL CAMEJO [facility] Start: 05-10-2022 End: 05-11-2022 ambulatory AZ UPTON Facility:[facility] Start: 04-26-2022 Telephone encounter Michael mccabe MD Work Phone: [facility] Procedures Date Procedure Procedure Detail Performing Clinician Start: 11-23-2021 Mammography Michael mccabe MD Work Phone: Plan of Treatment Date Care Activity Detail Author Start: 01-05-2023 Influenza vaccination Influenz a Vaccine (Season Ended) [facility] Start: 11-23-2022 Screening for malign ant neoplasm of breast Mammogram [facility] Start: 2022 ADVANCE DIRECTIVE DISCUSSION ADVANCE DIRECTIVE DISCUSSION [facility] Start: 2022 BONE DENSITY BONE DENSITY [facility] Start: 2022 Pneumococcal Vaccine : 65+ Years (1 - PCV) Pneumococcal Vaccine: 65+ Years (1 - PCV) [facility] Start: 2022 PNEUMOCOCCAL: 65+ (1 - PCV) PNEUMOCOCCAL: 65+ (1 - PCV) [facility] Start: 01-05-2022 Influenza vaccination INFLUENZA (#1) [facility] Start: 05-07-2021 DEPRESSION ASSESSMENT DEPRESSION ASS ESSMENT [facility] Start: 2007 SHINGRIX VACCINE (1 of 2) SHINGRIX V ACCINE (1 of 2) [facility] Start: 2007 Zoster Vaccines (1 of 2) Zoster Vacc marcus (1 of 2) [facility] Start: 2002 COLOGUARD (FIT-DNA) COLOGUARD (FIT-D NA) [facility] Start: 2002 Colonoscopy COLONOSCOPY [facility] Start: 2002 COLORECTAL CANCER SCREENING COLORECTAL CANCER SCREENING [facility] Start: [address] COLONOGRAPHY [facility] Start: 2002 DIABETES SCREEN DIABETES SCREEN [facility] Start: 2002 FECAL OCCULT BLOOD FECAL OCCULT BLOO D [facility] Start: 2002 LIPID SCREEN LIPID SCREEN [facility] Start: [address] [facility] Start: 1997 Mammography MAMMOGRAM [facility] Start: 1987 Screening for malign ant neoplasm of cervix [facility] Start: 1978 Screening for malign ant neoplasm of cervix Pap Smear [facility] Start: 02-08-1976 DTaP/Tdap/Td Vaccine s (1 - Tdap) DTaP/Tdap/Td Vaccines (1 - Tdap) [facility] Start: 02-08-1976 Urine microalbumin profile DTAP,TDAP ,TD (1 - Tdap) [facility] Start: 1975 Diabetes mellitus screening Diabetes Screening [facility] Start: 1975 HEPATITIS C SCREENING HEPATITIS C [facility] Start: 1975 Hepatitis C screening Hepatitis C [facility] Start: 1975 HIV SCREENING HIV SCREENING Mandy lagos [facility] Start: 1957 COVID-19 VACCINE (#1) COVID-19 VACCI NE (#1) [facility] Start: 1957 Annual wellness visit Medicare Initial Physical (IPPE) [facility] Start: 1957 Hepatitis B Vaccines (1 of 3 - 3-dose series) Hepatitis B Vaccines (1 of 3 - 3-dose series) [facility] Start: 1957 Medicare Annual Well ness (AWV) Medicare Annual Wellness (AWV) [facility] Start: 1957 Screening for malign ant neoplasm of colon [facility] Start: 1957 Screening for osteoporosis Bone Dens ity Scan Replaced By [facility] Payers Date Payer Category Payer Medicare [id number] 2022 Medicare [id number] 1997 Unknown MMO MMO [employer]AL [id number] 1997-Present [phone] [address] [place] [address] Indemnity [id number] Social History Date Type Detail Facility [facility] Tobacco smoking consumption unknown [facility] Start: 1955 Sex Assigned At Not on file [facility] Tobacco smoking stat [facility] Never smoked tobacco [facility] Start: 08-18-2021 Alcohol intake Ex-drinker (finding) [facility] Start: 05-27-2022 End: 06-06-2022 Exposure to SARS-CoV-2 (event) Not sure [facility] Clinical Note 06-06-2022 Note Date & Type Note Facility 06-06-2022 Note Plastic Surgery Prog ress Note PATIENT NAME: Joy Hogan TODAY'S DATE: 06/08/2022 SUBJECTIVE: Patient well-known to me who presents with right carpometacarpal arthritis of the thumb. Patient states previous cortisone shot worked for several months with complete resolution of pain with use. Patient states last 2 months she has had worsening pain with activity including internal grinder and range of motion. Patient denies any other changes. Patient presents for continued evaluation. OBJECTIVE: VITALS: There were no vitals taken for this visit. CONSTITUTIONAL: NAD RESPIRATORY: Nonlabored, No wheezing CV: HR/BP Stable ABDOMEN: Soft, NT, ND Hand: Bilateral radial ulnar joints intact range of motion. Range of motion for the metacarpophalangeal, proximal interphalangeal joints, and distal interphalangeal joints are intact. No obvious masses. Neurologically intact. Right worse than left there is obvious symptomatology of carpometacarpal arthritis of the basilar thumb. There is a positive grind maneuver and the pain is exacerbated by internal grinder. Collateral ligaments appear intact EXTREMITIES: ROM intact ASSESSMENT AND PLAN: Joy Hogan is a 67 y.o. female with right CMC arthritis of the thumb -Overall, given patient's excellent response to previous cortisone injection, plan on cortisone injection. -Discussed with patient that effect will fade over time and the patient will likely at some point benefit from a CMC arthroplasty -Discussed with patient risk and benefits including numbness, swelling, decreased efficacy -After consent, I injected 1cc of 20mg triamcinalone into right cmc joint -Patient tolerated well -Follow up as needed -I spent over 20 minutes counseling, coordinating, reviewing, documenting, and discussing patient work up and risks and benefits of surgical intervention. Michael Camejo MD, [id number] [facility] Progress note 05-10-2022 Note Date & Type Note Facility 05-10-2022 Note HNO ID: [id number] Author: Az Upton MD Service: ? Author Type: Physician Type: Progress Notes Filed: 05/10/2022 3:00 PM Note Text: Joy Hogan is a 67 year old female who presents for problem visit for cervical polyp. PCP took it off before and either has new one or recurrence of one. Paps neg last 20 years. No vaginal bleeding. 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 Social History Tobacco Use Smoking status: Never Smokeless tobacco: Never Vaping Use Vaping Use: Never used Substance Use Topics Alcohol use: Yes Comment: social Drug use: Never Current Outpatient Medications Medication Sig alendronate (FOSAMAX) 70 mg tablet Fosamax 70 mg tablet SRONYX 0.1-20 mg-mcg per tablet Take 1 tablet by mouth once daily. prednisoLONE sodium phosphate (ORAPRED) 15 mg/5 mL (3 mg/mL) oral liquid TAKE 5 ML TWO TIMES DAILY prednisoLONE (PRELONE) 15 mg/5 mL syrup TAKE 5 ML TWO TIMES DAILY No current facility-administered medications for this visit. Allergies As of Date: 05/10/2022 Allergen Noted Reaction PENICILLINS 03/28/2017 Hives, Itching, Rash, Shortness of Breath, and Swelling Fully Assessed 05/10/2022 Allergies and current medication updated:Yes EXAM: There were no vitals taken for this visit. GENERAL: pleasant, female in no apparent distress PELVIC: external genitalia normal, normal Bartholin's glands, urethra, [place]'s glands, no vulvar lesions, good vaginal support, physiologic discharge present, normal appearing perineal body and perianal region, cervix w/ lesion protruding on small stalk BIMANUAL: uterus normal size, shape and consistency, no adnexal masses, and non-tender ASSESSMENT AND PLAN: cervical polyp Medical Decision Making: Medical Decision Making Level: 1 - N/A Az Upton MD Joy Hogan presents for removal of a cervical polyp noted on exam. She reports no symptoms. UNIVERSAL PROTOCOL / SAFETY CHECKLIST Procedure to be Performed: cervical polyp removal Sign In: A Moment of CARE was completed. Personnel directly involved with the procedure wore the appropriate PPE (Personal Protective Equipment). Patient/Surrogate Stated/Verified: PATIENT VERIFIED(optional for EMERGENT procedures): Patient name, Date of , Relevant allergies, and The intended procedure Time Out Communication: Intended patient and procedure match the source documents. Consent documented and matches the intended procedure. Sign Out: SIGN OUT (optional for EMERGENT procedures): All specimen containers correctly labeled. All instruments, equipment, possible retained foreign bodies accounted for. Post-procedure follow-up management communicated and Plan of Care Visit completed when applicable. Az Upton MD PROCEDURE: VAGINA: Normal in appearance without lesions cervical polyp was grasped with long aubrey and removed with gentle twisting motion. Specimen was labeled and sent to pathology. Patient tolerated procedure well. Plan: Specimens labeled and sent to Pathology. Will notify patient of results in 1-2 weeks. Az Upton MD [facility] Telephone encounter Note 04-26-2022 Telephone Encounter - Shira aMs MA - 04/26/2022 2:36 PM EST Note Date & Type Note Facility 04-26-2022 Telephone encounter Note Form atting of this note might be different from the original. Pnt wants to have botox and a thumb injection. She will need 2 separate appts. Call tranferred to as the pnt was upset about this. [facility] Note 04-26-2022 Telephone Encounter - Shira Mas MA - 04/26/2022 2:36 PM ESTTelephone Encounter - Greyson Burgess - 04/26/2022 1:01 PM EST Note Date & Type Note Facility 04-26-2022 Miscellaneous Notes Formattin g of this note might be different from the original. Pnt wants to have botox and a thumb injection. She will need 2 separate appts. Call tranferred to as the pnt was upset about this. Name of Caller: Joy Contact Reason for Appointment: Pt is asking to have an office visit with Dr Camejo Office Name: Plastic Medication Refills need, if any: n/a Medication Name: n/a documented in this encounter [facility] Telephone encounter Note 04-26-2022 Telephone Encounter - Greyson Burgess - 04/26/2022 1:01 PM EST Note Date & Type Note Facility 04-26-2022 Telephone encounter Note Form atting of this note might be different from the original. Name of Caller: Joy Contact Reason for Appointment: Pt is asking to have an office visit with Dr Camejo Office Name: Plastic Medication Refills need, if any: n/a Medication Name: n/a [facility] Summary Purpose Family History No Family History Records FoundNo Family History Records FoundNo Family History Records Found Advance Directives No Advanced Directives Records FoundNo Advanced Directives Records FoundNo Advanced Directives Records Found Additional Source Comments Source Comments (unrecognize d section and content) In the event this informatio n is protected by the Federal Confidentiality of Alcohol and Drug Abuse Patient Records regulations: The Federal rules restrict any use of the information to criminally investigate or prosecute any alcohol or drug abuse patient.[facility] the event this information is protected by the Federal Confidentiality of Alcohol and Drug Abuse Patient Records regulations: The Federal rules restrict any use of the information to criminally investigate or prosecute any alcohol or drug abuse patient.[facility] the event this information is protected by the Federal Confidentiality of Alcohol and Drug Abuse Patient Records regulations: The Federal rules restrict any use of the information to criminally investigate or prosecute any alcohol or drug abuse patient.[facility] INFORMATION SOURCE (unrecogn ized section and content) DATE CREATED AUTHOR AUTHOR'S ORGANIZ ATION 05/13/2022 [facility] DATE CREATED AUTHOR AUTHOR'S ORGANIZ ATION 06/09/2022 [facility] Reason for Visit (unrecogniz ed section and content) Reason Onset Date Comments Appointment 04/26/2022 Care Teams (unrecognized sec tion and content) FOR RECORDS PERTAINING TO PATIENTS WHO ARE OR HAVE BEEN ENROLLED IN A CHEMICAL DEPENDENCY/SUBSTANCEABUSE PROGRAM, SOME INFORMATION MAY BE OMITTED. This clinical summary was aggregated from multiple sources. Caution should be exercised in using it in the provision of clinical care. This summary normalizes information from multiple sources, and as a consequence, information in this document may materially change the coding, format and clinical context of patient data. In addition, data may be omitted in some cases. CLINICAL DECISIONS SHOULD BE BASED ON THE PRIMARY CLINICAL RECORDS. [employer] [facility]. provides no warranty or guarantee of the accuracy or completeness of information in this document.
[2023-05-08] MEDS: Lactated Ringers 1,000 ML 15 ML IV (08:39)
--- NOTE | 2023-05-08 09:15 | PCM.HP.BLA ---
History and Physical Date of Admission: 05/08/23 Chief Complaint: c-scope results/surgery consult Is patient in pain?: No Allergies amoxicillin Allergy (Verified 04/18/23 13:54) Hives, tongue swelling Medications levonorgestrel-ethinyl estradiol 0.1 mg-20 mcg tablet (Sronyx) tab PO PRN 04/18/23 [History Confirmed 04/18/23] PFSH Medical History (Updated 04/18/23 @ 13:52 by Smita Singh) Alcohol abuse Asthma Constipation Hemorrhoids Surgical History S/P bilateral breast implants S/P ERCP S/P laparoscopic cholecystectomy S/P plastic surgery Family History (Updated 04/18/23 @ 13:52 by Smita Singh) Father Heart disease Social History (Updated 04/18/23 @ 13:52 by Smita Singh) Smoking Status: Never smoker alcohol intake: current alcohol intake frequency: holidays/special occasions only substance use type: does not use HPI HPI HPI: 68-year-old female being referred for surgical consultation. March 02, 2023 at the [facility] endoscopy [facility] patient had a colonoscopy performed because of personal history of colon polyps. Sigmoid diverticulosis noted. A stricture was felt to be noted in the sigmoid colon. No recurrent polyps identified. Looking back through records she had a emergency room visit on February 08, 2022. CT scan was obtained at that time because of abdominal pain. She was felt to have colitis affecting the rectosigmoid colon with evidence of diverticular disease and pericolonic and inflammatory change. She is referred to Dr. Enriquez Friend and back to her primary care physician Dr. Chava Milton. At that time she was having abdominal pain and colitis and nausea and diarrhea and leukocytosis with a white blood cell count of 16.9. It is of note that Dr. Lan assisted her April 13, 2021With an ERCP. Choledocholithiasis was identified and was removed. Subsequently on April 14, 2021 Dr. Wallace performed a laparoscopic cholecystectomy with cholangiograms. Elena presents for discussion regarding abdominal pain and her diagnosed sigmoid stricture. She recants that a year ago she had diverticulitis. She states that as an outpatient for 30 days she was treated with oral antibiotics and she thinks it was clindamycin and metronidazole. She claims that locally she had a follow-up with Dr. Artis Driver who instructed her to remain on the 30-day course of treatment. Since that time she has had occasional bouts of severe abdominal pain. She feels like she can literally sends things moving through her bowels and has a sharp pain. She has aphthous ulcers of her mouth. She takes a prednisolone solution that she swishes and swallows to help with that. When she is taking the prednisolone her abdominal pain is improved. She has had a previous history of colon polyps but none currently. Other than the laparoscopic cholecystectomy she has not had any additional abdominal procedures. She is quite anxious today regarding the potential need for surgery on her colon and the potential consequences. She has no family history of colon cancer. ROS General General: Yes weight change and fatigue; No appetite, colon cancer, breast cancer or weakness HEENT HEENT: No difficulty swallowing, eye injury, eye surgery, swollen glands or hoarseness Endo Endocrine: No thyroid disease, diabetes mellitus, thyroid cancer, Hair loss, heat intolerance or cold intolerance Skin Skin: No rash or changing moles Musc Musculoskeletal: Yes back problems and arthritis; No rheumatoid arthritis, gout or joint pain Cardio Cardiovascular: No murmur, pacemaker, heart disease, atrial fibrillation, high blood pressure, heart attack, heart stent, palpitations, shortness of breat with exertion or chest pain Psych Psychiatric: No depression, anxiety or hearing voices Resp Respiratory: No shortness of breath, No sleep apnea, No cough, No COPD, No asthma, No emphysema and No wheezing Gastro Gastrointestinal: Yes abdominal pain, Yes nausea or vomiting, No diarrhea, Yes constipation, No blood in stool, Yes acid reflux, Yes hemorrhoids, No ulcers, No gallbladder problem and No black,tarry stools Juan Hematologic: No blood thinners, No blood disorders, No bleeding, No anemia and No blood clots Neuro Neurologic: No system reviewed and no additional complaints, except as documented, No as per HPI, No abnormal gait, No abnormal hearing, No abnormal movements, No abnormal speech, No behavioral changes, No burning sensations, No confusion, No convulsions, No disequilibrium, No dizziness, No localized weakness, No frequent falls, No headache(s), No lack of coordination, No loss of vision, No memory loss, No numbness, No other visual disturbances, No radicular pain, No restless legs, No sensory deficit, No syncope, No tingling, No tremor(s), No weakness and No other Exam Const General: cooperative, comfortable and no acute distress HENMT Head: normal to inspection Eyes General: appearance normal, both eyes and all related structures Neck Neck: normal visual inspection Chest Chest palpation & inspection: normal inspection of the chest Resp Effort & Inspection: normal respiratory effort Auscultation: clear to auscultation bilaterally Cardio Rate: regular rate Rhythm: regular rhythm GI Inspection: normal to inspection Palpation: soft and no hepatosplenomegaly Other: Bowel sounds somewhat gurgly . Very slight tenderness palpation deeply in the left lower quadrant no mass or rebound or guarding. Musc Cervical Spine: normal cervical lordosis Skin General: no rashes or lesions noted Neuro General: patient alert, patient awake and patient oriented x3 Extrem General: no calf tenderness Psych Appearance: grossly normal Assessment and Plan Assessment and Plan (1) Sigmoid stricture: Status: Acute Plan: I had an extensive discussion with the patient with her clinical presentation. It seems based upon her ongoing symptoms that she does have a degree of partial large bowel obstruction secondary to chronic diverticular disease and stricturing. I do propose for her that this should be surgically treated. With her most recent colonoscopy unfortunately the location of the stricturing other than sigmoid colon is not specified and the area was not tattooed to facilitate surgical intervention. I therefore propose for her that I proceed with a flexible sigmoidoscopy with intended Stephanie ink marking of the area of stricture. I have subsequently recommended to her a laparoscopic sigmoid colectomy with primary anastomosis. In detail I have discussed technique benefits risk complications alternatives we discussed potential need for mobilization of the left colon and splenic flexure. We discussed potential conversion to hand-assisted or open approach. We have discussed potential for diverting ileostomy or colostomy. Because of the chronicity of this problem I am anticipating that she likely has significant inflammatory changes. Preoperatively I will want to check a CRP and ESR. I also for the procedural want left ureteral catheter placed by Dr. Burrows. She has had an opportunity to ask and have questions answered. She is not interested in having the definitive procedure performed till May 2023 and with the amount of scheduling that we need to do that would seem to be appropriate. She is aware that we will used an enhanced recovery program. I anticipate performing the flexible sigmoidoscopy with tattooing and then having of additional follow-up appointment the office prior to her already scheduled definitive surgery. I appreciate the opportunity of assisting with her surgical care. Copy: Dr. Chava Serrato M.D., F.A.C.S I have examined the patient and the H&P has been reviewed. There are no clinical changes since date of exam. Mirza Serrato M.D., F.A.C.S.
[2023-05-08 09:48] VITALS: BP 118/57; BP 127/86; PULSE 65; RESP 14; TEMP 36.3; O2SAT 95
--- NOTE | 2023-05-08 09:51 | OP.CCLET_ITS ---
05/08/2023 No Primary Care Physician Re : Flexible Sigmoidoscopy procedure for Joy Vital Dear Care Physician This procedure was performed on Monday, May 08, 2023. My impressions and recommendations are as follows: Impressions : - Diverticulosis in the sigmoid colon. 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 Tattooed. - No specimens collected. Recommendations : - Return to my office as already scheduled. Anticipate future surgical resection as already discussed.. My findings are described in the full procedure note, which is enclosed. If I can be of further assistance, please feel free to contact me at Doctor phone number(s): Work: . Sincerely, Mirza Serrato MD 05/08/2023 9:51:17 AM This report has been signed electronically.
--- NOTE | 2023-05-08 09:51 | OP.FLEXSIG_ITS ---
Patient Name: Joy Vital Procedure Date: 05/08/2023 9:23 AM Date of : 1955 Age: 68 Procedure: Flexible Sigmoidoscopy Indications: Preoperative assessment Providers: Mirza Serrato MD Referring MD: Mirza Serrato MD Medicines: See the Anesthesia note for documentation of the administered medications Patient Profile: Last Colonoscopy: within the past 3 months. Complications: No immediate complications. Procedure: Pre-Anesthesia Assessment: - Prior to the procedure, a History and Physical was performed, and patient medications and allergies were reviewed. The patient's tolerance of previous anesthesia was also reviewed. The risks and benefits of the procedure and the sedation options and risks were discussed with the patient. All questions were answered, and informed consent was obtained. Prior Anticoagulants: The patient has taken no anticoagulant or antiplatelet agents. ASA Grade Assessment: II - A patient with mild systemic disease. After reviewing the risks and benefits, the patient was deemed in satisfactory condition to undergo the procedure. After obtaining informed consent, the endoscope was passed under direct vision. Throughout the procedure, the patient's blood pressure, pulse, and oxygen saturations were monitored continuously. The Colonoscope was introduced through the anus and advanced to the splenic flexure. The flexible sigmoidoscopy was somewhat difficult due to multiple diverticula in the colon. The quality of the bowel preparation was good. Scope In: 9:32:08 AM Scope Out: 9:44:05 AM Total Procedure Duration Time 0 hours 11 minutes 57 seconds Findings: The perianal and digital rectal examinations were normal. Multiple diverticula were found in the sigmoid colon. A benign-appearing, intrinsic moderate stenosis measuring 5 cm (in length) was found in the mid sigmoid colon and was traversed. Area was tattooed with an injection of 3 mL of Stephanie ink. At approximately 20 to 28 cm significant tortuosity and luminal narrowing was encountered. I injected 3 different areas with Stephanie ink 1 representing the more proximal margin 1 representing what I felt was the mid area of the stenosis and 1 representing the more distal area or the colon seem to return to normal diameter. Impression: - Diverticulosis in the sigmoid colon. 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 Tattooed. - No specimens collected. Recommendation: - Return to my office as already scheduled. Anticipate future surgical resection as already discussed.. Procedure Code(s): --- Professional --- 87735, Sigmoidoscopy, flexible; with directed submucosal injection(s), any substance Diagnosis Code(s): --- Professional --- K56.699, Other intestinal obstruction unspecified as to partial versus complete obstruction Z01.818, Encounter for other preprocedural examination K57.30, Diverticulosis of large intestine without perforation or abscess without bleeding CPT copyright 2021 [employer]. All rights reserved. The codes documented in this report are preliminary and upon bioinformatics software engineer review may be revised to meet current compliance requirements. Mirza Serrato MD 05/08/2023 9:51:17 AM This report has been signed electronically. Number of Addenda: 0 Note Initiated On: 05/08/2023 9:23 AM
[2023-05-08 09:55] VITALS: BP 112/93; BP 127/86; PULSE 72; RESP 16; O2SAT 96
[2023-05-08 10:00] VITALS: BP 107/64; BP 127/86; PULSE 74; RESP 16; TEMP 36.2; O2SAT 96
[2023-05-08 10:29] VITALS: BP 127/86
== END 2023-05-08 10:39 | disposition home or self-care (01) ==
LOC: EN 08:04 → AC 08:57
PROVIDERS: Visit Provider Surgery
PROC: 0DJD8ZZ Inspection of Lower Intestinal Tract, Via Natural or Artificial Opening Endoscopic (ICD-10-PCS; CPT 45330; principal; 2023-05-08 09:10)
DX: K56.699 Other intestinal obstruction unspecified as to partial versus complete obstruction (principal); K57.30 Diverticulosis of large intestine without perforation or abscess without bleeding; Z90.49 Acquired absence of other specified parts of digestive tract; Z86.010 Personal history of colon polyps
CPT/HCPCS: 45335; J7120; A4648; J2405

== ENCOUNTER 2023-05-30 05:10 | Inpatient (IN) | payer MEDICARE, SELFPAY ==
--- NOTE | 2023-05-21 12:01 | EKG12_ITS ---
Test Reason : PRE-OP Blood Pressure : / mmHG Vent. Rate : 083 BPM Atrial Rate : 083 BPM P-R Int : 150 ms QRS Dur : 074 ms QT Int : 360 ms P-R-T Axes : 053 041 061 degrees QTc Int : 423 ms Normal sinus rhythm Normal ECG Confirmed by KAMILAH FRIEDMAN, JOSE ANGEL ([id number]), editor dictionary LUPE KAISER ([id number]) on 05/22/2023 5:57:16 AM Referred By: Mirza Serrato Confirmed By:JOSE ANGEL TRIANA MD
[2023-05-21 12:44] LABS: Hemoglobin 14.1 g/dL (12.0-15.0); Mean Corp Hgb Conc 31.3 g/dL (32-36); Mean Corpuscular Volume 95.7 fL (81-99); Platelet Count 242 K/mm3 (150-450); RBC Distribution Width CV 13.7 % (11.6-14.6); RBC Distribution Width SD 48.3 fl (35.1-43.9); White Blood Count 8.3 K/mm3 (4.4-11.0)
[2023-05-21 13:35] LABS: Anion Gap 5 (5-15); BUN 17 mg/dL (7-18); BUN/Creat Ratio 19.2 RATIO (10-20); Calcium,Total 8.8 mg/dL (8.5-10.1); Chloride 109 mmol/L (98-107); Creatinine, Serum 0.89 mg/dL (0.55-1.02); EST Glomerular Filtration Rate 68 mL/min (>60); Est Glom Filt Rate - Afr Amer 82 mL/min (>60); Glucose 112 mg/dL (74-106); Potassium 3.7 mmol/L (3.5-5.1); Sodium Level 142 mmol/L (136-145)
[2023-05-21 13:43] LABS: Magnesium 2.3 mg/dL (1.6-2.6)
[2023-05-30] VITALS (13 sets, daily range): BP systolic 93–142; BP diastolic 61–110; PULSE 78–91; RESP 16–28; TEMP 36.2–37.2; O2SAT 96–100; BMI 27.0
--- OUTSIDE RECORDS SUMMARY | 2023-05-30 05:13 | XMS RPT_ITS | CCD ---
Author Name Unknown Address [facility] [address] [place] [address] Organization [facility] Care Team Providers Care Emergency Medical Technician Basic Name Role Phone Unavailable Primary Care Provider UnavailAZ Pritchard Attending Unavailable MICHAEL CAMEJO Attending Unavailable MATTY BECKER Primary Care Unavailable Matty Becker Primary Care Provider Allergies Allergy Classification Reported Allergen(s) Allergy Type Date of Onset Reaction(s) Facility (1 source) Penicillins; Translations: [PENICILLINS] Propensity to adverse reactions to drug (disorder) 7 [facility] Repository Medications Completed/Discontinued Medications Medication Drug Class(es) [...] Start: 06-06-2022 End: 06-06-2022 ambulatory MICHAEL CAMEJO [facility] Start: 05-10-2022 End: 05-11-2022 ambulatory AZ UPTON Facility:[facility] Start: 04-26-2022 Telephone encounter Michael mccabe MD Work Phone: [facility] Plastic & Re[facility]ive Surgery Procedures Date Procedure Procedure Detail Performing Clinician Start: 11-23-2021 Mammography Michael mccabe MD Work Phone: Plan of Treatment Date Care Activity Detail Author Start: 01-05-2023 Influenza vaccination Influenz a Vaccine (Season Ended) [facility] Start: 11-23-2022 Screening for malign ant neoplasm of breast Mammogram [facility] Start: 2022 ADVANCE DIRECTIVE DISCUSSION ADVANCE DIRECTIVE DISCUSSION [facility] Start: 2022 BONE DENSITY BONE DENSITY [facility] Start: 2022 Pneumococcal Vaccine : 65+ Years (1 - PCV) Pneumococcal Vaccine: 65+ Years (1 - PCV) [facility] Start: 2022 PNEUMOCOCCAL: 65+ (1 - PCV) PNEUMOCOCCAL: 65+ (1 - PCV) [facility] Start: 01-05-2022 Influenza vaccination INFLUENZA (#1) [facility] Start: 05-07-2021 DEPRESSION ASSESSMENT DEPRESSION ASS ESSMENT [facility] Start: 2007 SHINGRIX VACCINE (1 of 2) SHINGRIX V ACCINE (1 of 2) [facility] Start: 2007 Zoster Vaccines (1 of 2) Zoster Vacc marcus (1 of 2) [facility] Start: 2002 COLOGUARD (FIT-DNA) COLOGUARD (FIT-D NA) [facility] Start: 2002 Colonoscopy COLONOSCOPY [facility] Start: 2002 COLORECTAL CANCER SCREENING COLORECTAL CANCER SCREENING [facility] Start: [address] COLONOGRAPHY [facility] Start: 2002 DIABETES SCREEN DIABETES SCREEN [facility] Start: 2002 FECAL OCCULT BLOOD FECAL OCCULT BLOO D [facility] Start: 2002 LIPID SCREEN LIPID SCREEN [facility] Start: 2002 SIGMOIDOSCOPY SIGMOIDOSCOPY [facility] Start: 1997 Mammography MAMMOGRAM [facility] Start: 1987 Screening for malign ant neoplasm of cervix [facility] Start: 1978 Screening for malign ant neoplasm of cervix Pap Smear [facility] Start: 02-08-1976 DTaP/Tdap/Td Vaccine s (1 - Tdap) DTaP/Tdap/Td Vaccines (1 - Tdap) [facility] Start: 02-08-1976 Urine microalbumin profile DTAP,TDAP ,TD (1 - Tdap) [facility] Start: 1975 Diabetes mellitus screening Diabetes Screening [facility] Start: 1975 HEPATITIS C SCREENING HEPATITIS C [facility] Start: 1975 Hepatitis C screening Hepatitis C [facility] Start: 1975 HIV SCREENING HIV SCREENING [facility] Start: 1955 COVID-19 VACCINE (#1) COVID-19 VACCI NE (#1) [facility] Start: 1955 Annual wellness visit Medicare Initial Physical (IPPE) [facility] Start: 1955 Hepatitis B Vaccines (1 of 3 - 3-dose series) Hepatitis B Vaccines (1 of 3 - 3-dose series) [facility] Start: 1955 Medicare Annual Well ness (AWV) Medicare Annual Wellness (AWV) [facility] Start: 1955 Screening for malign ant neoplasm of colon [facility] Start: 1955 Screening for osteoporosis Bone Dens ity Scan [facility] Payers Date Payer Category Payer Medicare [id number] 2022 Medicare [id number] 1997 Unknown MMO MMO [employer] NAL [id number] 1997-Present [phone] [address] [place] [address] Indemnity [id number] Social History Date Type Detail [facility] Start: 1955 Sex Assigned At Not on file C [facility] Tobacco smoking stat [facility] Never smoked tobacco [facility] Start: 08-18-2021 Alcohol intake Ex-drinker (finding) [facility] Start: 05-27-2022 End: 06-06-2022 Exposure to SARS-CoV-2 (event) Not sure [facility] Clinical Note 06-06-2022 Note Date [...] has had worsening pain with activity including public health aide and range of motion. Patient denies any [...] maneuver and the pain is exacerbated by public health aide. Collateral ligaments appear intact EXTREMITIES: ROM intact [...] benefits of surgical intervention. Michael Camejo MD, #[id number] [facility] Progress note 05-10-2022 Note Date & Type Note Facility 05-10-2022 Note HNO ID: [id number] Author: Az Upton MD Service: ? 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 Az Upton MD [facility] Telephone encounter Note 04-26-2022 Telephone Encounter - Shira Mas MA - 04/26/2022 2:36 PM EST Note Date & Type Note Facility 04-26-2022 Telephone encounter Note Form atting of this note might be different from the original. Pnt wants to have botox and a thumb injection. She will need 2 separate appts. Call tranferred to as the pnt was upset about this. [facility] Note 04-26-2022 Telephone Encounter - [...] Medication Name: n/a documented in this encounter [facility] Telephone encounter Note 04-26-2022 Telephone [...] or prosecute any alcohol or drug abuse patient.[facility] the event this information is protected by the Federal Confidentiality of Alcohol and Drug Abuse Patient Records regulations: The Federal rules restrict any use of the information to criminally investigate or prosecute any alcohol or drug abuse patient.[facility] the event this information is protected by the Federal Confidentiality of Alcohol and Drug Abuse Patient Records regulations: The Federal rules restrict any use of the information to criminally investigate or prosecute any alcohol or drug abuse patient.[facility] INFORMATION SOURCE (unrecogn ized section and content) DATE CREATED AUTHOR AUTHOR'S ORGANIZ ATION 05/13/2022 [facility] DATE CREATED AUTHOR AUTHOR'S ORGANIZ ATION 06/09/2022 [facility] Reason for [...] BE BASED ON THE PRIMARY CLINICAL RECORDS. [place] [employer] [facility]. provides no warranty or guarantee of the accuracy or completeness of information in this document.
[2023-05-30] MEDS: Lactated Ringers 1,000 ML 40 ML IV ×3 (06:09→14:56)
[2023-05-30] MEDS: Magnesium 1 GM over 15 mins IV (06:10)
[2023-05-30] MEDS: Acetaminophen 500 MG Tablet 1000 MG PO ×3 (06:12→20:15)
[2023-05-30] MEDS: Gabapentin 600 MG Tablet PO (06:12)
--- NOTE | 2023-05-30 06:15 | PCM.HP.BLA ---
History and Physical Date of Admission: 05/30/23 Chief Complaint: Discuss results/surgery [facility] Director Required: No Is patient in pain?: No Allergies amoxicillin Allergy (Verified 05/14/23 10:16) Hives, tongue swelling Medications levonorgestrel-ethinyl estradiol 0.1 mg-20 mcg tablet (Sronyx) 1 tab PO DAILY 04/18/23 [History Confirmed 05/14/23] prednisolone sodium phosphate 15 mg/5 mL (3 mg/mL) oral solution 15 mg PO BID PRN PRN MOUTH ULCERS 05/01/23 [History Confirmed 05/14/23] [facility] Medical History (Updated 05/14/23 @ 10:13 by Rashmi Lieberman) Alcohol abuse Alcohol use Arthritis Asthma Colitis Constipation Gastric reflux Heartburn Hemorrhoids History of diverticulitis History of flexible sigmoidoscopy History of steroid therapy Non-smoker PONV (postoperative nausea and vomiting) Sigmoid stricture Wears glasses Surgical History S/P bilateral breast implants S/P ERCP S/P laparoscopic cholecystectomy S/P plastic surgery Family History Father Heart disease Social History Smoking Status: Never smoker alcohol intake: current alcohol intake frequency: holidays/special occasions only substance use type: does not use HPI HPI HPI: 68-year-old female returns status post flexible sigmoidoscopy that I assisted her with on May 08, 2023. This was performed in preoperative planning as she was previously diagnosed as having sigmoid stricturing. Multiple diverticula of the sigmoid colon were identified. A benign appearing intrinsic stenosis measuring about 5 cm in length was found in the mid sigmoid approximately 20 to 28 cm from the anus. I injected 3 different areas with ink 1 site measuring what I thought was the most proximal area of disease-free and 1 measuring the focal midpoint in the last more distal marking representing where I felt the stenosis ended. My previous notes reflect the following Is patient in pain?: No Allergies amoxicillin Allergy (Verified 04/18/23 13:54) Hives, tongue swelling Medications levonorgestrel-ethinyl estradiol 0.1 mg-20 mcg tablet (Sronyx) tab PO PRN 04/18/23 [History Confirmed 04/18/23] [facility] Medical History (Updated 04/18/23 @ 13:52 by Smita Sinhg) Alcohol abuse Asthma Constipation Hemorrhoids Surgical History S/P bilateral breast implants S/P ERCP S/P laparoscopic cholecystectomy S/P plastic surgery Family History (Updated 04/18/23 @ 13:52 by Smita Singh) Father Heart disease Social History (Updated 04/18/23 @ 13:52 by Smita Singh) Smoking Status: Never smoker alcohol intake: current alcohol intake frequency: holidays/special occasions only substance use type: does not use HPI HPI HPI: 68-year-old female being referred for surgical consultation. March 02, 2023 at the [facility] endoscopy [facility] patient had a colonoscopy performed because of personal history of colon polyps. Sigmoid diverticulosis noted. A stricture was felt to be noted in the sigmoid colon. No recurrent polyps identified. Looking back through records she had a emergency room visit on February 08, 2022. CT scan was obtained at that time because of abdominal pain. She was felt to have colitis affecting the rectosigmoid colon with evidence of diverticular disease and pericolonic and inflammatory change. She is referred to Dr. Enriquez Friend and back to her primary care physician Dr. Chava Milton. At that time she was having abdominal pain and colitis and nausea and diarrhea and leukocytosis with a white blood cell count of 16.9. It is of note that Dr. Lan assisted her April 13, 2021With an ERCP. Choledocholithiasis was identified and was removed. Subsequently on April 14, 2021 Dr. Wallace performed a laparoscopic cholecystectomy with cholangiograms. Elena presents for discussion regarding abdominal pain and her diagnosed sigmoid stricture. She recants that a year ago she had diverticulitis. She states that as an outpatient for 30 days she was treated with oral antibiotics and she thinks it was clindamycin and metronidazole. She claims that locally she had a follow-up with Dr. Artis Driver who instructed her to remain on the 30-day course of treatment. Since that time she has had occasional bouts of severe abdominal pain. She feels like she can literally sends things moving through her bowels and has a sharp pain. She has aphthous ulcers of her mouth. She takes a prednisolone solution that she swishes and swallows to help with that. When she is taking the prednisolone her abdominal pain is improved. She has had a previous history of colon polyps but none currently. Other than the laparoscopic cholecystectomy she has not had any additional abdominal procedures. She is quite anxious today regarding the potential need for surgery on her colon and the potential consequences. She has no family history of colon cancer. ROS General General: Yes weight change and fatigue; No appetite, colon cancer, breast cancer or weakness HEENT HEENT: No difficulty swallowing, eye injury, eye surgery, swollen glands or hoarseness Endo Endocrine: No thyroid disease, diabetes mellitus, thyroid cancer, Hair loss, heat intolerance or cold intolerance Skin Skin: No rash or changing moles Musc Musculoskeletal: Yes back problems and arthritis; No rheumatoid arthritis, gout or joint pain Cardio Cardiovascular: No murmur, pacemaker, heart disease, atrial fibrillation, high blood pressure, heart attack, heart stent, palpitations, shortness of breat with exertion or chest pain Psych Psychiatric: No depression, anxiety or hearing voices Resp Respiratory: No shortness of breath, No sleep apnea, No cough, No COPD, No asthma, No emphysema and No wheezing Gastro Gastrointestinal: Yes abdominal pain, Yes nausea or vomiting, No diarrhea, Yes constipation, No blood in stool, Yes acid reflux, Yes hemorrhoids, No ulcers, No gallbladder problem and No black,tarry stools Juan Hematologic: No blood thinners, No blood disorders, No bleeding, No anemia and No blood clots Neuro Neurologic: No system reviewed and no additional complaints, except as documented, No as per HPI, No abnormal gait, No abnormal hearing, No abnormal movements, No abnormal speech, No behavioral changes, No burning sensations, No confusion, No convulsions, No disequilibrium, No dizziness, No localized weakness, No frequent falls, No headache(s), No lack of coordination, No loss of vision, No memory loss, No numbness, No other visual disturbances, No radicular pain, No restless legs, No sensory deficit, No syncope, No tingling, No tremor(s), No weakness and No other Exam Const General: cooperative, comfortable and no acute distress [facility] Head: normal to inspection Eyes General: appearance normal, both eyes and all related structures Neck Neck: normal visual inspection Chest Chest palpation & inspection: normal inspection of the chest Resp Effort & Inspection: normal respiratory effort Auscultation: clear to auscultation bilaterally Cardio Rate: regular rate Rhythm: regular rhythm GI Inspection: normal to inspection Palpation: soft and no hepatosplenomegaly Other: Bowel sounds somewhat gurgly . Very slight tenderness palpation deeply in the left lower quadrant no mass or rebound or guarding. Musc Cervical Spine: normal cervical lordosis Skin General: no rashes or lesions noted Neuro General: patient alert, patient awake and patient oriented x3 Extrem General: no calf tenderness Psych Appearance: grossly normal Assessment and Plan Assessment and Plan (1) Sigmoid stricture: Status: Acute Plan: I had an extensive discussion with the patient with her clinical presentation. It seems based upon her ongoing symptoms that she does have a degree of partial large bowel obstruction secondary to chronic diverticular disease and stricturing. I do propose for her that this should be surgically treated. With her most recent colonoscopy unfortunately the location of the stricturing other than sigmoid colon is not specified and the area was not tattooed to facilitate surgical intervention. I therefore propose for her that I proceed with a flexible sigmoidoscopy with intended Stephanie ink marking of the area of stricture. I have subsequently recommended to her a laparoscopic sigmoid colectomy with primary anastomosis. In detail I have discussed technique benefits risk complications alternatives we discussed potential need for mobilization of the left colon and splenic flexure. We discussed potential conversion to hand-assisted or open approach. We have discussed potential for diverting ileostomy or colostomy. Because of the chronicity of this problem I am anticipating that she likely has significant inflammatory changes. Preoperatively I will want to check a CRP and ESR. I also for the procedural want left ureteral catheter placed by Dr. Burrows. She has had an opportunity to ask and have questions answered. She is not interested in having the definitive procedure performed till May 2023 and with the amount of scheduling that we need to do that would seem to be appropriate. She is aware that we will used an enhanced recovery program. I anticipate performing the flexible sigmoidoscopy with tattooing and then having of additional follow-up appointment the office prior to her already scheduled definitive surgery. I appreciate the opportunity of assisting with her surgical care. Copy: Dr. Chava Serrato M.D., F.A.C.S ROS General General: Yes weight change and fatigue; No appetite, colon cancer, breast cancer or weakness HEENT HEENT: No difficulty swallowing, eye injury, eye surgery, swollen glands or hoarseness Endo Endocrine: No thyroid disease, diabetes mellitus, thyroid cancer, Hair loss, heat intolerance or cold intolerance Skin Skin: No rash or changing moles Musc Musculoskeletal: Yes back problems and arthritis; No rheumatoid arthritis, gout or joint pain Cardio Cardiovascular: No murmur, pacemaker, heart disease, atrial fibrillation, high blood pressure, heart attack, heart stent, palpitations, shortness of breat with exertion or chest pain Psych Psychiatric: No depression, anxiety or hearing voices Resp Respiratory: No shortness of breath, No sleep apnea, No cough, No COPD, No asthma, No emphysema and No wheezing Gastro Gastrointestinal: Yes abdominal pain, Yes nausea or vomiting, No diarrhea, Yes constipation, No blood in stool, Yes acid reflux, Yes hemorrhoids, No ulcers, No gallbladder problem and No black,tarry stools Juan Hematologic: No blood thinners, No blood disorders, No bleeding, No anemia and No blood clots Neuro Neurologic: No system reviewed and no additional complaints, except as documented, No as per HPI, No abnormal gait, No abnormal hearing, No abnormal movements, No abnormal speech, No behavioral changes, No burning sensations, No confusion, No convulsions, No disequilibrium, No dizziness, No localized weakness, No frequent falls, No headache(s), No lack of coordination, No loss of vision, No memory loss, No numbness, No other visual disturbances, No radicular pain, No restless legs, No sensory deficit, No syncope, No tingling, No tremor(s), No weakness and No other Assessment and Plan Assessment and Plan (1) Sigmoid stricture: Status: Acute Plan: I have extensively discussed with the patient my plans for a laparoscopic sigmoid colectomy with primary anastomosis and definitive treatment of diverticular disease induced sigmoid stricturing. I anticipate Dr Burrows placing a left ureteral catheter. We have discussed laparoscopic technique versus hand-assisted versus open approach. We discussed potential for diverting colostomy. We additionally discussed utilization of a laparoscopically guidance bilateral transabdominal plane block. We will utilize an enhanced recovery program. She has had an opportunity to ask and have questions answered. She is scheduled we will proceed as noted. I appreciate the ongoing opportunity of assisting with her surgical care. Copy: Dr. Chava Serrato M.D., F.A.C.S I have examined the patient and the H&P has been reviewed. There are no clinical changes since date of exam. Mirza Serrato M.D., F.A.C.S.
--- NOTE | 2023-05-30 06:18 | DCINST_ITS ---
Discharge Instructions Procedure General Surgery Diet Discharge Diet: Light diet - advance as tolerated (if you have questions about your diet instructions, please talk to you doctor.) Activity Discharge Activity: May Not Drive (for 3-5 days or while taking narcotic pain medicine.) May shower in (days): 1 Lifting Restrictions: 10 pounds Dressing / Incision Call your doctor if your incision/area has: Continuous Slow Oozing, Sudden Increased Bleeding, Increased Pain/ Swelling, Increased Redness and Foul Smelling Discharge Call your doctor if you observe: Fever of 101 or Higher Suture Line Care: Avoid Pulling/Pushing and Avoid Pinching/Bending Additional Dressing/Incision Instructions:: Change or remove dressing in 4 days. Leave steri-strips in place for 1 week. Follow Up Care Please Follow Up With: Mirza Serrato MD When: Call [phone] to make an appointment to be seen in about 10 days. Test Results: Test results from this visit will be discussed in further detail at your follow- up appointment, if applicable. Discharge Plan Admission Admit Date/Time: 05/30/23 05:10 Attending Provider: Mirza Serrato Primary Care Provider: Care Physician,Pina Primary Discharge Orders/Prescriptions Prescriptions: No Action levonorgestrel-ethinyl estrad [Sronyx] 0.1-20 mg-mcg tablet 1 tab PO DAILY PRN (Reason: HORMONE ) prednisolone sodium phosphate 15 mg/5 mL (3 mg/mL) solution 15 mg PO BID PRN PRN (Reason: MOUTH ULCERS) Patient Comments: TAKE 5 ML TWO TIMES DAILY Referrals / Follow Up: Chava Milton MD [Non-Staff] -
[2023-05-30 06:41] LABS: Bedside Glucose 108 mg/dL (74-106)
[2023-05-30] MEDS: metroNIDAZOLE 500 MG/100 ML BAG 100 MG IV ×2 (06:47→14:58)
--- NOTE | 2023-05-30 07:30 | COL_PTH ---
PATHOLOGY RESULTS PATIENT: STEVIE HOGAN LOC: [facility] U#:[id number] AGE/SX: 68/F ROOM: [facility]312 RE05/30/[address]: Dr. Miraz Serrato MD : 1955 BED: 1 DIS: 06/01/2023 SPEC #: [id number] RECD: 05/30/23 12:40 STATUS: NILO PATELRe #: [id number] KACIE: 05/30/23 07:[address]: Mirza Serrato DEPT: SURGICAL PATHOLOGY RECD BY: Lissette Duval ENTERED: 05/30/23 12:41 SP TYPE: COLON OTHR DR: No Primary Care Phys Tissues: Colon, NOS Colon Donuts Colon Donuts Procedures: Surgery Specimen Level III Surgery Specimen Level V HEADER OPERATION: ERAS, laparoscopic sigmoid colectomy, transversus abdominus PRE-OP DIAGNOSIS: Sigmoid stricture TISSUE SUBMITTED: A - Sigmoid colon, B - Proximal sigmoid donut, C - Distal rectal donut MICROSCOPIC DIAGNOSIS A. Sigmoid colon, colectomy: Diverticulosis and diverticulitis. One benign lymph node. B. Proximal sigmoid donut: No pathologic diagnosis. C. Distal rectal donut: Colonic donut with focal mucosal congestion and hemorrhage. SJ:rg 06/01/2023 MICROSCOPIC DESCRIPTION Slides are reviewed. GROSS DESCRIPTION A - Received in fixative is one container labeled with the patient's name and designated sigmoid colon. The specimen consists of a segment of colon with attached pericolonic adipose tissue measuring 14.0 cm in length. One resection margin is stapled and other resection margin is open. Dye discoloration is noted on the serosal and mucosal surface. No mucosal lesion is identified. Sections reveal multiple diverticula. No obviously ruptured diverticula are noted. Sections of pericolonic adipose tissue do not reveal any obviously enlarged lymph node. [employer] Rec[employer]iter sections are submitted in eight cassettes as follows: 1??open resection margin, 2 - stapled resection margin, 3-7 - diverticula including area of the dye discoloration, 8 - pericolonic adipose tissue. B - Received in fixative is one container labeled with the patient's name and designated proximal sigmoid donut. The specimen consists of a piece of colonic donut measuring 2.5 x 1.5 x 1.0 cm. Multiple sutures are noted. Job Recruiter sections are submitted in one cassette. C - Received in fixative is one container labeled with the patient's name and designated distal rectal donut. The specimen consists of a piece of colonic donut measuring 2.5 x 2.0 x 1.5 cm. Mucosa shows focal congestion. Multiple radha are noted. [employer] Recruiter sections are submitted in one cassette. / KALPANA:opal 05/31/2023 TC:5 CPT: 91031, 87500 x2
[2023-05-30] MEDS: Ciprofloxacin 400 MG/200 ML BAG 200 MG IV ×2 (07:40→14:42)
--- NOTE | 2023-05-30 08:04 | OP.PCM_ITS ---
Report of Operation Date of Procedure: 05/30/23 Pre-Operative Diagnosis: Sigmoid diverticulitis Post-Operative Diagnosis: The same Surgery/Procedure Performed:: Cystoscopy and placement of the left ureteral catheter Description of Surgical Findings:: Patient was taken back to the operating room at a smooth induction of general anesthesia she was placed in dorsolithotomy position the urethrovaginal area then prepped and draped in usual sterile fashion. I then gently dilated the urethra and then went into the bladder with a 21 Moroccan rigid cystourethroscope the bladder was normal there is no tumors or stones within the bladder the left and right ureter orifice were identified the trigone was identified I then used a 5 Moroccan open-ended Pollick catheter and a 0.038 Glidewire and cannulated the left ureteral orifice and advanced the catheter up the ureter about 20 cm then pulled out the wire backloaded the scope off the Pollick catheter and then placed a Stewart catheter in the bladder and then the ureteral catheter was secured. The case was then handed over to the primary surgeon to proceed. Surgeon: Woodrow uBrrows Type of Anesthesia: General Drains: left ureteral cath Admit VTE Documentation VTE Present on Admission: No VTE Mechan Device Prophylaxis: SCD's VTE Pharm Prophylaxis ordered?: No
[2023-05-30] MEDS: Lubricating Jelly 60 GM Tube 30 GM (09:00)
[2023-05-30] MEDS: 0.9% Normal Saline (Pres. free 10 ML Vial (09:05)
[2023-05-30] MEDS: Bupivacaine 0.25% 30 ML Vial (09:05)
[2023-05-30] MEDS: BUPIVACAINE LIPOSOME/PF 20 ML VIAL OPERA.SITE (09:05)
--- NOTE | 2023-05-30 11:22 | OP.PCM_ITS ---
Report of Operation Date of Procedure: 05/30/23 Pre-Operative Diagnosis: Chronic sigmoid diverticulitis with stricture Post-Operative Diagnosis: Same Surgery/Procedure Performed:: Laparoscopic bilateral transabdominal plane block Laparoscopic sigmoid colectomy Description of Surgical Findings:: Timeout informed consent was obtained. 68-year-old female was taken to the operating room placed supine on the table underwent general tracheal ovation esthesia. Ciprofloxacin and metronidazole were given intravenously preoperatively. She was placed in a low lithotomy position. Dr. Burrows performed a cystoscopy with left ureteral catheter placement. Subsequently the abdomen perineum was sterilely prepped and draped. Superior to the right of the umbilicus 5 mm Visiport access was achieved. Later in the case I increase that to a 10 mm port. 5 mm ports were then placed on the right mid and lower quadrant. A transabdominal plane block was performed with Exparel mixed with 0.25% Marcaine diluted with saline 200 cc. Having achieved that then the pelvis was inspected and noted to have the Stephanie ink markings at the pelvic crest density apparent to the left pelvic sidewall. I placed a 5 mm port suprapubically and carefully and tediously the sigmoid colon was sharply and mostly bluntly released from the pelvic sidewall. Having achieved that could clearly see the course of the ureter with help with the catheter and the ureter was intact. The mesentery to the sigmoid colon was markedly thickened and edematous. Transected that with a Enseal device down to the peritoneal reflection. I incised the white line of Toldt all the way up to the splenic fracture completely freeing the left colon. [place] that I then had adequate resection length. Transected the rectum with a Difficult Run device. The second firing though did not seem to completely fire correctly. Could not get another staple line across. So there was no air leak by elected to imbricate the left lateral aspect with a couple sutures of 2-0 Vicryl. Reinsufflated and again there was no air leak either at the beginning or at the completion. [place] that I had a good rectal stump. Made a Pfannenstiel incision transfer suprapubically incisive rectus fascia transversely and then split the rectus muscles vertically. Medium sized wound protector exited the sigmoid colon dissected up to the sigmoid colon at a point where there is. Mesenteric supply transected the bowel specimen was delivered for analysis a whip suture of 2-0 Prolene was placed and then a 33 mm anvil was inserted and secured there with a pursestring which I then did a second pursestring to secure. That was dab with Betadine drop back within the abdomen. The rectum was irrigated with dilute Betadine solution then sizers were used and then the 33 mm stapler was inserted and was able to be advanced right to the staple line. The trocar was exited. I was able to take the handful and match it up to the trocar the 2 were then applied I checked the left colon appeared to have good positioning without torsion the device was fired the donuts were inspected noted be completely intact. I further scored the mesentery to the sigmoid colon to assure proper laxity which I felt was present. Sigmoidoscope inserted air was insufflated and there was absolutely no air leak again. Pelvis was irrigated and aspirated free. The greater omentum was placed overlying all the way down to the pelvis. The 10 mm port site superior to the right and umbilicus were closed with a grainy needle and 2 suture simple sutures of 0 Vicryl. The right lower quadrant port 10 point millimeter port site was closed with a grainy needle in a simple suture of 0 Vicryl. The Pfannenstiel incision was closed by approximate the peritoneum with a running 0 Vicryl and then the fascia was closed with running 0 PDS. It is of note that sterile protocol was utilized and once the wound protector was out gloves and gowns had been changed. All wounds were closed with interrupted and running subicular 4-0 Monocryl. Steri-Strips Telfa OpSite dressings applied. Sponge and instrument and needle counts were reported to certainly be correct. Specimens sigmoid colon and donuts. Drains none. Blood loss 50 cc. The patient was taken the recovery room in satisfied condition without apparent complication Mirza Serrato M.D., F.A.C.S. Surgeon: Mirza Serrato Type of Anesthesia: Block,Regional and General Anesthesiologist: aJss Mckinney
[2023-05-30] MEDS: Ketorolac 15 MG/ML Vial IV ×2 (14:41→20:14)
[2023-05-30] MEDS: Ondansetron ODT 4 MG Tablet PO (14:41)
--- NOTE | 2023-05-30 15:52 | PCM.PN.SRG ---
Subjective Subjective Patient denies any significant pain. Her nausea is resolved with medication. She is quite thirsty. Objective Data Objective Data Vital Signs: Vital Signs Temp Pulse Resp BP Pulse Ox O2 Del Method O2 Flow Rate 98.2 F 88 16 114/73 100 Room Air 4 05/30/23 13:56 05/30/23 13:56 05/30/23 13:56 05/30/23 13:56 05/30/23 13:56 05/30/23 13:56 05/30/23 13:00 Oxygen Flow Rate (L/min) 4 Oxygen Delivery Method Room Air Weight: 167 lb 8.821 oz Body Mass Index (BMI) 27.0 Intake & Output: Intake and Output for Last 24 Hours 05/28/23 05/29/23 05/30/23 23:59 23:59 23:59 Intake Total 1690 / 1690 Output Total 260 / 260 Balance 1430 / 1430 Lab / Micro Data 05/21/23 12:15 05/21/23 12:15 Labs: Laboratory Results - last 24 hr 05/30/23 05:57: POC Glucose 108 H Physical Exam Resp normal respiratory effort GI GI Narrative: Soft, nontender Assessment & Plan Assessment/Plan (1) Sigmoid stricture: PLAN: Plan Urine output has improved. She clinically appears to be stable with stable vital signs. I have encouraged use of I-S and mobilization. Mirza Serrato M.D., F.A.C.S.
[2023-05-30] MEDS: Docusate Sodium 100 MG Capsule PO (22:08)
[2023-05-31 00:19] VITALS: BP 110/66; PULSE 70; RESP 16; TEMP 36.7; O2SAT 97
[2023-05-31] MEDS: Ketorolac 15 MG/ML Vial IV ×4 (02:28→20:36)
[2023-05-31] MEDS: Acetaminophen 500 MG Tablet 1000 MG PO ×4 (02:28→20:36)
[2023-05-31 04:35] VITALS: BP 110/66; PULSE 76; RESP 16; TEMP 36.8; O2SAT 97
--- NOTE | 2023-05-31 05:50 | NURSING ---
Pt stood bedside last night and also ambulated in room.Pt tolerated both very well. I educated the patient on importance of ambulating, using IS, chewing gum and how to use blanket for splinting.
--- NOTE | 2023-05-31 06:37 | PCM.PN.SRG ---
Subjective Subjective Patient states that she feels well. Very little abdominal pain. No flatus yet. She feels some gurgling. Objective Data Objective Data Vital Signs: Vital Signs Temp Pulse Resp BP Pulse Ox O2 Del Method O2 Flow Rate 98.2 F 76 16 110/66 97 Room Air 4 05/31/23 04:35 05/31/23 04:35 05/31/23 04:35 05/31/23 04:35 05/31/23 04:35 05/31/23 04:35 05/30/23 13:00 Oxygen Flow Rate (L/min) 4 Oxygen Delivery Method Room Air Weight: 167 lb 8.821 oz Body Mass Index (BMI) 27.0 Intake & Output: Intake and Output for Last 24 Hours 05/29/23 05/30/23 05/31/23 23:59 23:59 23:59 Intake Total 1940 / 1940 1500 / 1500 Output Total 610 / 610 1100 / 1100 Balance 1330 / 1330 400 / 400 Lab / Micro Data 05/21/23 12:15 05/21/23 12:15 Labs: Laboratory Results - last 24 hr 05/30/23 05:57: POC Glucose 108 H Physical Exam Const oriented x3 GI GI Narrative: Abdomen is softly distended, no focal tenderness, bowel sounds are present. Dressings clean and dry Assessment & Plan Assessment/Plan (1) Sigmoid stricture: (2) Diverticulitis: PLAN: Patient appears to be making good progress. I will hold the IV and remove the Stewart. I will hold her at clear liquids for the moment. She can utilize a K-pad for comfort. I have encouraged mobilization. Mirza Serrato M.D., F.A.C.S.
[2023-05-31 07:32] LABS: Hematocrit 35.1 % (37-47); Hemoglobin 11.2 g/dL (12.0-15.0); Mean Corp Hgb Conc 31.9 g/dL (32-36); Mean Corpuscular Hgb 29.9 pg (27.0-32.0); Mean Corpuscular Volume 93.6 fL (81-99); Mean Platelet Vol. 11.2 fl (6.2-12.0); Platelet Count 180 K/mm3 (150-450); RBC Distribution Width CV 13.5 % (11.6-14.6); RBC Distribution Width SD 46.1 fl (35.1-43.9); Red Blood Count 3.75 M/mm3 (4.2-5.4); White Blood Count 9.9 K/mm3 (4.4-11.0)
[2023-05-31 08:03] LABS: Anion Gap 3 (5-15); BUN 12 mg/dL (7-18); BUN/Creat Ratio 14.6 RATIO (10-20); Calcium,Total 8.3 mg/dL (8.5-10.1); Chloride 105 mmol/L (98-107); Creatinine, Serum 0.82 mg/dL (0.55-1.02); EST Glomerular Filtration Rate 74 mL/min (>60); Est Glom Filt Rate - Afr Amer 89 mL/min (>60); Estimated Creatinine Clearance 70.29 ml/min; Glucose 97 mg/dL (74-106); Potassium 3.7 mmol/L (3.5-5.1); Sodium Level 134 mmol/L (136-145)
[2023-05-31 08:20] VITALS: BP 118/65; PULSE 72; RESP 18; TEMP 37.2; O2SAT 96
[2023-05-31] MEDS: Enoxaparin 40 MG/0.4 ML Syringe SC (08:44)
[2023-05-31] MEDS: Docusate Sodium 100 MG Capsule PO ×2 (08:45→22:59)
[2023-05-31] MEDS: 0.9% Saline Lock 10 ML Syringe IV ×2 (08:45→14:03)
[2023-05-31] MEDS: Ondansetron ODT 4 MG Tablet PO (10:42)
--- NOTE | 2023-05-31 12:00 | CASEMGMT ---
RN BLANCHE LIVE STUDY MANAGER CM to room to meet with patient for initial transition planning/care coordination assessment. SRIKANTH MANCIA introduced self and role at [facility]. Pt voices understanding and consents to assessment at this time. Pt sitting up chair in no distress at this time. Pt is A/O at this time and answers all questions appropriately. Care providers, pharmacy, and demographics verified/updated at this time. PCP: Pt used to see Dr Milton, but is in the process of getting established w/a new PCP, but is not sure who she will be seeing. She does not want a local PCP directory. Specialists: Dr Serrato-surgeon Preferred Pharmacy: [facility] Insurance: MCR A/B Prescription Benefit: Yes Living Will/HPOA: Has both LW and HCPOA who is her . LNOK: , Jacob Living Arrangements: Lives w/her in 2-story home w/bedroom and bathroom on 2nd floor and bathroom also on main floor. 2 steps to enter. Denies difficulty w/stairs. Independent. Transportation: Pt states drives self and states no transportation concerns at this time. also drives DME: Denies using any DME and denies needs. HHC/SNF: No hx of either. Denies needs and no needs identified. Pt wishes to return home and states has no concerns with going home at time of discharge. CM to follow for any discharge planning/needs. Pt voices no concerns/needs at this time. Advised pt to ask for CM if any questions/concerns/needs arise. Voices understanding. PLAN: Home Ashish DANIELS RN, CM
[2023-05-31 14:00] VITALS: BP 122/61; PULSE 79; RESP 18; TEMP 36.7; O2SAT 96
--- NOTE | 2023-05-31 15:17 | PCM.PN.SRG ---
Subjective Subjective Patient generally more uncomfortable than earlier. She feels bloated and distended. Very small amount of flatus just recently. The right lower quadrant discomfort at the incision site seems to have resolved. No particular current nausea. Objective Data Objective Data Vital Signs: Vital Signs Temp Pulse Resp BP Pulse Ox O2 Del Method O2 Flow Rate 98.1 F 79 18 122/61 H 96 Room Air 4 05/31/23 14:00 05/31/23 14:00 05/31/23 14:00 05/31/23 14:00 05/31/23 14:00 05/31/23 14:00 05/30/23 13:00 Oxygen Flow Rate (L/min) 4 Oxygen Delivery Method Room Air Weight: 167 lb 8.821 oz Body Mass Index (BMI) 27.0 Intake & Output: Intake and Output for Last 24 Hours 05/29/23 05/30/23 05/31/23 23:59 23:59 23:59 Intake Total 1940 / 1940 2158 / 2158 Output Total 610 / 610 1650 / 1650 Balance 1330 / 1330 508 / 508 Lab / Micro Data 05/31/23 07:11 05/31/23 07:11 Labs: Laboratory Results - last 24 hr 05/31/23 07:11: WBC 9.9, RBC 3.75 L, Hgb 11.2 L, Hct 35.1 L, MCV 93.6, MCH 29.9, MCHC 31.9 L, RDW Std Deviation 46.1 H, RDW Coeff of Noé 13.5, Plt Count 180, MPV 11.2, Sodium 134 L, Potassium 3.7, Chloride 105, Carbon Dioxide 26.0, Anion Gap 3 L, BUN 12, Creatinine 0.82, Estim Creat Clear Calc 70.29, Est GFR (MDRD) Af Amer 89, Est GFR (MDRD) Non-Af 74, BUN/Creatinine Ratio 14.6, Glucose 97, Calcium 8.3 L Physical Exam GI GI Narrative: Abdomen is soft, generally distended, no focal mass or tenderness, bowel sounds are present Assessment & Plan Assessment/Plan (1) Diverticulitis: (2) Sigmoid stricture: PLAN: Plan I continue to encourage the patient to ambulate is much as tolerated. I would not advance her currently past her clear liquids. She is clearly not ready for discharge. We will continue conservative measures. Mirza Serrato M.D., F.A.C.S.
[2023-05-31] MEDS: SimETHICONE 80 MG Chewable Tablet PO (18:03)
[2023-05-31 20:16] VITALS: BP 130/76; PULSE 67; RESP 18; TEMP 37.1; O2SAT 97
[2023-05-31 21:59] VITALS: O2SAT 97
[2023-06-01 02:38] VITALS: BP 127/81; PULSE 64; RESP 18; TEMP 37.2; O2SAT 95
[2023-06-01] MEDS: Acetaminophen 500 MG Tablet 1000 MG PO ×3 (02:44→14:02)
--- NOTE | 2023-06-01 05:57 | PCM.PN.SRG ---
Subjective Subjective Patient feeling better than yesterday. No nausea. 5 out of 10 abdominal crampy pain. She has been passing flatus. She had some slight liquidy stool with some blood. No clots. Objective Data Objective Data Vital Signs: Vital Signs Temp Pulse Resp BP Pulse Ox O2 Del Method O2 Flow Rate 98.9 F 64 18 127/81 H 95 Room Air 4 06/01/23 02:38 06/01/23 02:38 06/01/23 02:38 06/01/23 02:38 06/01/23 02:38 06/01/23 02:38 05/30/23 13:00 Oxygen Flow Rate (L/min) 4 Oxygen Delivery Method Room Air Weight: 167 lb 8.821 oz Body Mass Index (BMI) 27.0 Intake & Output: Intake and Output for Last 24 Hours 05/30/23 05/31/23 06/01/23 23:59 23:59 23:59 Intake Total 1940 / 1940 2158 / 2158 1100 / 1100 Output Total 610 / 610 2550 / 2550 1100 / 1100 Balance 1330 / 1330 -392 / -392 0 / 0 Lab / Micro Data 05/31/23 07:11 05/31/23 07:11 Labs: Laboratory Results - last 24 hr 05/31/23 07:11: WBC 9.9, RBC 3.75 L, Hgb 11.2 L, Hct 35.1 L, MCV 93.6, MCH 29.9, MCHC 31.9 L, RDW Std Deviation 46.1 H, RDW Coeff of Noé 13.5, Plt Count 180, MPV 11.2, Sodium 134 L, Potassium 3.7, Chloride 105, Carbon Dioxide 26.0, Anion Gap 3 L, BUN 12, Creatinine 0.82, Estim Creat Clear Calc 70.29, Est GFR (MDRD) Af Amer 89, Est GFR (MDRD) Non-Af 74, BUN/Creatinine Ratio 14.6, Glucose 97, Calcium 8.3 L Physical Exam Resp normal respiratory effort GI GI Narrative: Softer and less distended than yesterday, bowel sounds are present, dressings clean and dry Assessment & Plan Assessment/Plan (1) Sigmoid stricture: (2) Diverticulitis: PLAN: Plan Patient appears to be demonstrating progress. She has had some slight stool and flatus. Will advance to a transitional diet but she does state that nothing smells or tastes good. We will continue to encourage mobilization. Labs pending. Mirza Serrato M.D., F.A.C.S.
[2023-06-01 09:09] VITALS: BP 130/77; PULSE 80; RESP 18; TEMP 36.3; O2SAT 98
[2023-06-01] MEDS: SimETHICONE 80 MG Chewable Tablet PO ×2 (09:20→13:22)
[2023-06-01] MEDS: Enoxaparin 40 MG/0.4 ML Syringe SC (09:21)
[2023-06-01] MEDS: Docusate Sodium 100 MG Capsule PO (09:21)
[2023-06-01 09:22] LABS: Absolute Lymphocyte Count 1.13 X10^3/uL (0.83-4.51); Absolute Neutrophil Count 5.7 X10^3/uL (2.0-7.7); Basophil# 0.02 X10^3/uL; Basophil% 0.3 % (0-1); Eosinophil# 0.07 X10^3/uL; Eosinophils% 0.9 % (0-5); Hematocrit 38.2 % (37-47); Hemoglobin 12.5 g/dL (12.0-15.0); Lymphocyte # 1.13 X10^3/ul (0.83-4.51); Lymphocyte % 14.8 % (19-41); Mean Corp Hgb Conc 32.7 g/dL (32-36); Mean Corpuscular Hgb 30.3 pg (27.0-32.0); Mean Corpuscular Volume 92.7 fL (81-99); Monocyte% 9.2 % (0-10); NRBC Flagged by Analyzer 0 % (0-5); Neutrophil # 5.67 X10^3/uL (2.7-7.7); Platelet Count 198 K/mm3 (150-450); RBC Distribution Width CV 13.3 % (11.6-14.6); RBC Distribution Width SD 45.4 fl (35.1-43.9); Red Blood Count 4.12 M/mm3 (4.2-5.4); White Blood Count 7.7 K/mm3 (4.4-11.0)
[2023-06-01 14:17] VITALS: BP 139/75; PULSE 88; RESP 18; TEMP 36.6; O2SAT 95
--- NOTE | 2023-06-01 16:53 | CASEMGMT ---
Social Work SW met with pt to discuss advance directives.? Pt confirms she has completed a living will and health care POA naming her Alexys Vital.? Pt notified that documents are not on file at [facility] and SW requested they be brought in for scanning into the EMR.? RADHA Fajardo
--- NOTE | 2023-06-01 17:34 | PCM.PN.SRG ---
Subjective Subjective Patient is doing very well. Much more comfortable than yesterday. Passing stool and flatus. No nausea or vomiting. Tolerating a advance diet. Objective Data Objective Data Vital Signs: Vital Signs Temp Pulse Resp BP Pulse Ox O2 Del Method O2 Flow Rate 97.8 F 88 18 139/75 H 95 Room Air 4 06/01/23 14:17 06/01/23 14:17 06/01/23 14:17 06/01/23 14:17 06/01/23 14:17 06/01/23 14:17 05/30/23 13:00 Oxygen Flow Rate (L/min) 4 Oxygen Delivery Method Room Air Weight: 167 lb 8.821 oz Body Mass Index (BMI) 27.0 Intake & Output: Intake and Output for Last 24 Hours 05/30/23 05/31/23 06/01/23 23:59 23:59 23:59 Intake Total 1940 / 1940 2158 / 2158 1340 / 1340 Output Total 610 / 610 2550 / 2550 1100 / 1100 Balance 1330 / 1330 -392 / -392 240 / 240 Lab / Micro Data 06/01/23 09:07 05/31/23 07:11 Labs: Laboratory Results - last 24 hr 06/01/23 09:07: WBC 7.7, RBC 4.12 L, Hgb 12.5, Hct 38.2, MCV 92.7, MCH 30.3, MCHC 32.7, RDW Std Deviation 45.4 H, RDW Coeff of Noé 13.3, Plt Count 198, MPV 11.0, Immature Gran % (Auto) 0.800, Neut % (Auto) 74.0 H, Lymph % (Auto) 14.8 L, Cloud % (Auto) 9.2, Eos % (Auto) 0.9, Baso % (Auto) 0.3, Absolute Neuts (auto) 5.7, Absolute Lymphs (auto) 1.13, Nucleated RBC % 0 Physical Exam GI GI Narrative: Soft, absolutely nontender, bowel sounds present, dressings clean and dry Assessment & Plan Assessment/Plan (1) Diverticulitis: (2) Sigmoid stricture: PLAN: Plan Patient has made excellent progress and is ready for discharge
--- NOTE | 2023-06-01 17:35 | PCM.DC.SUM ---
Providers Date of Admission: 05/30/23 Primary Care Physician: No Primary Care Phys Reason For Visit: SIGMOID STRICTURE WITH CHRONIC DIVERTICULITIS Diagnosis Discharge Diagnosis (1) Diverticulitis: Status: Acute Code(s): K57.92 - Diverticulitis of intestine, part unspecified, without perforation or abscess without bleeding (2) Sigmoid stricture: Status: Acute Code(s): K56.699 - Other intestinal obstruction unspecified as to partial versus complete obstruction Plan Patient has made excellent progress and is ready for discharge Medications at Discharge Home Medications levonorgestrel-ethinyl estradiol 0.1 mg-20 mcg tablet (Sronyx) 1 tab PO DAILY PRN HORMONE 04/18/23 prednisolone sodium phosphate 15 mg/5 mL (3 mg/mL) oral solution 15 mg PO BID PRN PRN MOUTH ULCERS 05/01/23 Hospital Course Operations - (Bilateral transverses abdominal plane block with laparoscopic sigmoid colectomy. Cystoscopy with left ureteral catheter placement per Dr. Burrows) Summary of Care Provided Hospital Course: 68-year-old female with partial colonic obstruction secondary to chronic diverticulitis and sigmoid stricture was taken to the operating room. A left ureteral catheter was placed to assist with the dissection. At the time of operation actually a more acute process was identified with acute inflammation of the sigmoid to the left pelvic sidewall. Dissection was performed to free this and a laparoscopic sigmoid colectomy was performed. At the same setting a laparoscopic bilateral transverses abdominal plane block was performed. Postoperatively she was placed in an enhanced recovery program. She made excellent progress. By June 01, 2023 postop day 2 she was passing stool and flatus and tolerating a diet and made sufficient coverage allow for discharge. Her discharge medicines will be her admission medications. She will have surgical follow-up in approximately 10 days. Weight / BMI Weight Weight: 167 lb 8.821 oz Body Mass Index (BMI) 27.0 ABG / Lab / Microbiology Data 06/01/23 09:07 05/31/23 07:11 Laboratory: Laboratory Results - last 24 hr 06/01/23 09:07: WBC 7.7, RBC 4.12 L, Hgb 12.5, Hct 38.2, MCV 92.7, MCH 30.3, MCHC 32.7, RDW Std Deviation 45.4 H, RDW Coeff of Noé 13.3, Plt Count 198, MPV 11.0, Immature Gran % (Auto) 0.800, Neut % (Auto) 74.0 H, Lymph % (Auto) 14.8 L, Childress % (Auto) 9.2, Eos % (Auto) 0.9, Baso % (Auto) 0.3, Absolute Neuts (auto) 5.7, Absolute Lymphs (auto) 1.13, Nucleated RBC % 0 D/C Instructions Discharge Diet: Light diet - advance as tolerated (if you have questions about your diet instructions, please talk to you doctor.) May shower in (days): 1 Call your doctor if your incision/area has: Continuous Slow Oozing, Sudden Increased Bleeding, Increased Pain/ Swelling, Increased Redness and Foul Smelling Discharge Call your doctor if you observe: Fever of 101 or Higher Suture Line Care: Avoid Pulling/Pushing and Avoid Pinching/Bending Additional Dressing/Incision Instructions: Change or remove dressing in 4 days. Leave steri-strips in place for 1 week. Please Follow Up With: Mirza Serrato MD When: Call [phone] to make an appointment to be seen in about 10 days. Meaningful Use Info Meaningful Use Diagnoses (Choose all that apply): None applicable Discharge Plan Admission Admit Date/Time: 05/30/23 05:10 Primary Reason for Your Visit: Sigmoid colon stricture/diverticular disease Attending Provider: Mirza Serrato Primary Care Provider: Care PhysicianPina Primary Discharge Orders/Prescriptions Prescriptions: Continued levonorgestrel-ethinyl estrad [Sronyx] 0.1-20 mg-mcg tablet 1 tab PO DAILY PRN (Reason: HORMONE ) prednisolone sodium phosphate 15 mg/5 mL (3 mg/mL) solution 15 mg PO BID PRN PRN (Reason: MOUTH ULCERS) Patient Comments: TAKE 5 ML TWO TIMES DAILY Referrals / Follow Up: Chava Milton MD [Non-Staff] - Disposition Disposition (needs filled in before D/C Order can be placed): Home, Self Care
== END 2023-06-01 18:07 | disposition home or self-care (01) | DRG 330 ==
LOC: ACINP 05:13 → MS3 13:19
PROVIDERS: Anesthesiology; Admitting Provider Surgery; Referring Provider Surgery; Visit Provider Surgery
PROC: 0DTN0ZZ Resection of Sigmoid Colon, Open Approach (ICD-10-PCS; CPT 44204; principal; 2023-05-30 07:05)
DX: K56.690 Other partial intestinal obstruction (principal); K57.32 Diverticulitis of large intestine without perforation or abscess without bleeding; Z90.49 Acquired absence of other specified parts of digestive tract; Z79.899 Other long term (current) drug therapy; Z86.010 Personal history of colon polyps
CPT/HCPCS: 36415; 80048; 82962; 83735; 85025; 85027; 88304; 88307; 93005; 94668; J7120; A4216; C1760; C1769; J0744; J2405; J3475; J3490

== ENCOUNTER 2023-06-18 12:29 | Day surgery (SDC) | payer MEDICARE, SELFPAY ==
[2023-06-18 12:58] VITALS: BP 118/71; PULSE 80; RESP 18; TEMP 37; O2SAT 99; BMI 26.3
--- NOTE | 2023-06-18 13:01 | PCM.HP.STD ---
HPI - General General Date of Admission: 06/18/23 Date of Service: 06/18/23 Chief Complaint: Change in bowel habits HPI Narrative Patient is a 68 y/o F I am following s/p Laparoscopic bilateral transabdominal plane block, Laparoscopic sigmoid colectomy, and Cystoscopy and placement of the left ureteral catheter by Dr. Serrato on 05/30/23. Patient tolerated the procedure well. She states she has been recovering better than expected. Patient denies any nausea, vomiting, fever since discharge. She notes her appetite is slowly returning. She is hesitant to try certain foods. Patient denies any further rectal bleeding since discharge. She notes her bowel movements are soft. Pathology demonstrated: MICROSCOPIC DIAGNOSIS A. Sigmoid colon, colectomy: Diverticulosis and diverticulitis. One benign lymph node. B. Proximal sigmoid donut: No pathologic diagnosis. C. Distal rectal donut: Colonic donut with focal mucosal congestion and hemorrhage Patient contacted our office on Sunday, 06/15 noting that her hemorrhoids were flaring up secondary to bowel habits changes. Patient stated she was straining on some of her bowel movements secondary to feeling like she still had to go. Patient denies bleeding from the hemorrhoids or pain. She notes the hemorrhoids were itching. She states her bowel habits with the extra pushing are similar to the bowel habits she had prior to surgery. Patient was told on Sunday that she can start hydrocortisone ointment to the hemorrhoids. Prescription was called into her pharmacy. I contacted the patient this morning to review her symptoms with me and when asked about the hydrocortisone ointment, she noted that the pharmacy did not have any available and was unable to start it. She notes continued slight pushing with bowel movements, which is consistent with the bowel habits she had prior to surgery. Dr. Serrato had discussed this patient with me this morning noting her would like to do a flex sig with possible dilatation today without IV. This was relayed to the patient. She was hesitant at first and then decided to proceed. Patient notes she will put herself on clear liquids following our phone call at 0830 AM. She would like Versed if at all possible but is understanding if it will be a quick thing. [facility] Medical History Alcohol abuse Alcohol use Arthritis Asthma Colitis Constipation Gastric reflux Heartburn Hemorrhoids History of diverticulitis History of flexible sigmoidoscopy History of steroid therapy Non-smoker PONV (postoperative nausea and vomiting) Sigmoid stricture Wears glasses Home Medications levonorgestrel-ethinyl estradiol 0.1 mg-20 mcg tablet (Sronyx) 1 tab PO DAILY PRN HORMONE 04/18/23 [History Last Taken Unknown] prednisolone sodium phosphate 15 mg/5 mL (3 mg/mL) oral solution 15 mg PO BID PRN PRN MOUTH ULCERS 05/01/23 [History Last Taken Unknown] hydrocortisone 2.5 % topical cream with perineal applicator (Proctosol HC) 1 applic VA BID #30 grams 06/15/23 [Rx Last Taken Unknown] Allergy/AdvReac Type Severity Reaction Status Date / Time amoxicillin Allergy Hives, Verified 06/11/23 13:21 tongue swelling Family History Father Heart disease Surgical History S/P bilateral breast implants S/P colectomy S/P ERCP S/P laparoscopic cholecystectomy S/P plastic surgery Social History Smoking Status: Never smoker alcohol intake: current alcohol intake frequency: holidays/special occasions only substance use type: does not use ROS Constitutional Constitutional: Denies anorexia, chills, fatigue, fever(s), headache(s), weight gain or weight loss Eyes Eyes: Denies blurry vision, change in vision, loss of central vision, loss of peripheral vision or loss of vision ENT HEENT: Denies abnormal hearing, dysphagia, epistaxis, facial pain, hearing loss, nasal congestion, nasal discharge, neck pain, sinus pain or sinus pressure Cardiovascular Cardiovascular: Reports syncope; Denies chest pain, chest pain at rest, chest pain with activity, dyspnea or palpitations Respiratory/Chest Respiratory/Chest: Reports shortness of breath with exertion; Denies cough, dyspnea, productive cough, shortness of breath at rest or wheezing Gastrointestinal Gastrointestinal: Reports abdominal pain; Denies bloating, change in bowel habits, coffee ground emesis, constipation, diarrhea, dysphagia, hematemesis, hematochezia, melena, nausea, rectal bleeding or vomiting Genitourinary Genitourinary: Denies change in urinary stream, difficulty urinating, dysuria, flank pain, genital pain, hematuria, urinary frequency, urinary incontinence or urinary urgency Musculoskeletal Musculoskeletal: Denies abnormal gait, back pain, difficulty walking, joint pain, joint swelling, limited range of motion, muscle spasms, muscle weakness or numbness Integumentary Integumentary: Denies jaundice Neurologic Neurologic: Reports weakness; Denies abnormal gait, dizziness, focal weakness, loss of vision, numbness or tingling Psychiatric Psychiatric: Denies anxiety or depression Endocrine Endocrinology: Denies flushing, heat intolerance or palpitations Hematologic/Lymphatic Hematologic/Lymphatic: Reports easy bleeding and easy bruising Allergic/Immunologic Allergic/Immunologic: Denies systems reviewed and no addt'l complaints, except as documented Vital Signs Vital Signs Vital Signs: 06/18/23 12:51 06/18/23 12:58 Temperature 98.6 F Temperature Source Temporal Pulse Rate 80 Respiratory Rate 18 Respiratory Pattern Normal Blood Pressure 118/71 Blood Pressure Mean 86 Blood Pressure Source Monitor Blood Pressure Position Semi-Fowlers Blood Pressure Location Right Arm Pulse Ox 99 Oxygen Delivery Method Room Air Weight Weight: 163 lb Body Mass Index (BMI) 26.3 Physical Exam Const alert, oriented x3 and no apparent distress HEENT normocephalic Eyes PERRL Neck full ROM Lymph Lymphatic: no lymphadenopathy noted Chest inspection of chest normal Resp normal respiratory effort and clear to auscultation bilaterally Cardio regular rate and regular rhythm GI normal to inspection, nondistended, normoactive bowel sounds Palpation: tender other (lower abdomen) no CVA tenderness Back/Spine no CVA tenderness Extremity normal to inspection Skin no rashes or lesions noted Neuro no focal motor deficits and no sensory deficits noted Psych mental status grossly normal Assessment & Plan Assessment/Plan (1) S/P colectomy: PLAN: Dr. Serrato will plan to perform a flexible sigmoidoscopy with possible dilatation and possible Kenalog injection. Procedure details, risks and benefits have been explained. Patient and her spouse have had the opportunity to ask and have questions answered. Patient verbally understands and agrees with the plan. Patient has been on clear liquids. Charges/Coding Visit Charges OBSV E&M: 66730 Observ/hosp same date L2 (no charge)
[2023-06-18] MEDS: Triamcinolone Acetonide 40 MG/ML Vial 20 MG OPERA.SITE (13:35)
[2023-06-18] MEDS: 0.9% Normal Saline (Pres. free 10 ML Vial (13:35)
[2023-06-18 14:06] VITALS: BP 109/66; BP 118/71; PULSE 78; RESP 18; TEMP 37; O2SAT 99
--- NOTE | 2023-06-18 14:15 | OP.CCLET_ITS ---
06/18/2023 No Primary Care Physician Re : Flexible Sigmoidoscopy procedure for Joy Vital Dear Care Physician This procedure was performed on Sunday, June 18, 2023. My impressions and recommendations are as follows: Impressions : - Non-thrombosed internal hemorrhoids and internal hemorrhoids (Grade I) found on digital rectal exam. - Patent end-to-end colo-colonic anastomosis, characterized by congestion. Injected with minimal triamcinolone to assist with edema. Initial thoughts attempts at balloon dilatation were aborted upon further inspection of the anastomosis. The anastomosis otherwise appeared to be widely patent. The patient's preintervention symptoms of straining and decreased caliber stool likely simply secondary to soft tissue swelling. Anastomosis otherwise appears to be healing well without ischemia. - No specimens collected. Recommendations : - Continue present medications. My findings are described in the full procedure note, which is enclosed. If I can be of further assistance, please feel free to contact me at Doctor phone number(s): Work: . Sincerely, Mirza Serrato MD 06/18/2023 2:14:51 PM This report has been signed electronically.
--- NOTE | 2023-06-18 14:15 | OP.FLEXSIG_ITS ---
Patient Name: Joy Vital Procedure Date: 06/18/2023 1:20 PM Date of : 1955 Age: 68 Procedure: Flexible Sigmoidoscopy Indications: Change in bowel habits Providers: Mirza Serrato MD Medicines: None Patient Profile: Last Colonoscopy: within the past 3 months. Complications: No immediate complications. Procedure: Pre-Anesthesia Assessment: - Prior to the procedure, a History and Physical was performed, and patient medications and allergies were reviewed. The patient's tolerance of previous anesthesia was also reviewed. The risks and benefits of the procedure and the sedation options and risks were discussed with the patient. All questions were answered, and informed consent was obtained. Prior Anticoagulants: The patient has taken no anticoagulant or antiplatelet agents. ASA Grade Assessment: II - A patient with mild systemic disease. After reviewing the risks and benefits, the patient was deemed in satisfactory condition to undergo the procedure. After obtaining informed consent, the endoscope was passed under direct vision. Throughout the procedure, the patient's blood pressure, pulse, and oxygen saturations were monitored continuously. The gastroscope was introduced through the anus and advanced to the sigmoid colon. The flexible sigmoidoscopy was accomplished without difficulty. The patient tolerated the procedure well. The quality of the bowel preparation was good. Scope In: 1:30:38 PM Scope Out: 1:41:11 PM Total Procedure Duration Time 0 hours 10 minutes 33 seconds Findings: The digital rectal exam findings include non-thrombosed internal hemorrhoids and internal hemorrhoids (Grade I). Pertinent negatives include normal sphincter tone. There was evidence of a prior end-to-end colo-colonic anastomosis in the recto-sigmoid colon. This was patent and was characterized by congestion. The anastomosis was traversed. Area was successfully injected with less than 8 mg of triamcinolone. For quadrants.. Estimated blood loss was minimal. Impression: - Non-thrombosed internal hemorrhoids and internal hemorrhoids (Grade I) found on digital rectal exam. - Patent end-to-end colo-colonic anastomosis, characterized by congestion. Injected with minimal triamcinolone to assist with edema. Initial thoughts attempts at balloon dilatation were aborted upon further inspection of the anastomosis. The anastomosis otherwise appeared to be widely patent. The patient's preintervention symptoms of straining and decreased caliber stool likely simply secondary to soft tissue swelling. Anastomosis otherwise appears to be healing well without ischemia. - No specimens collected. Recommendation: - Continue present medications. Procedure Code(s): --- Professional --- 30164, Sigmoidoscopy, flexible; with directed submucosal injection(s), any substance Diagnosis Code(s): --- Professional --- K64.0, First degree hemorrhoids Z98.0, Intestinal bypass and anastomosis status R19.4, Change in bowel habit CPT copyright 2021 [employer]. All rights reserved. The codes documented in this report are preliminary and upon associate product integrity engineer review may be revised to meet current compliance requirements. Mirza Serrato MD 06/18/2023 2:14:51 PM This report has been signed electronically. Number of Addenda: 0 Note Initiated On: 06/18/2023 1:20 PM
== END 2023-06-18 14:09 | disposition home or self-care (01) ==
LOC: SDC 12:35 → AC 12:36
PROVIDERS: Referring Provider Surgery; Visit Provider Surgery
PROC: 0DJD8ZZ Inspection of Lower Intestinal Tract, Via Natural or Artificial Opening Endoscopic (ICD-10-PCS; CPT 45330; principal; 2023-06-18 13:25)
DX: K64.0 First degree hemorrhoids (principal); R19.4 Change in bowel habit; Z98.0 Intestinal bypass and anastomosis status; Z90.49 Acquired absence of other specified parts of digestive tract
CPT/HCPCS: 45335; J7120; J3490

== ENCOUNTER 2023-07-04 07:17 | Emergency (ER) | payer MEDICARE, SELFPAY ==
[2023-07-04 07:17] VITALS: BP 143/89; PULSE 101; RESP 22; TEMP 36.4; O2SAT 99
--- NOTE | 2023-07-04 07:21 | ED.RN ---
Pt. refused to stand on scale to get an accurate weight during triage assessment.
--- NOTE | 2023-07-04 07:31 | EX.ED.DYSGE1 ---
HPI History of Present Illness Chief Complaint: Flank Pain Informant: patient Onset/Context/Timing Onset: Days (3) Context: Gradual Onset Timing: Continuous Quality: Dull, sharp Location: Left flank Worsened by: Walking Relieved by: Nothing Narrative Narrative: Patient presents with left flank pain that has been getting worse over the past 3 days. Patient states became acutely worse today. Patient describes her pain as dull but sharp at times. Patient states it is localized to the left flank area. Patient states it is worse with walking. Patient states nothing makes it better. Patient states she is unable to find a position of comfort. Patient admits to some nausea but denies any vomiting. Patient denies any fevers or chills. Patient denies any dysuria or hematuria. Patient states she had a recent bowel resection and stent placement in her left ureter. [facility] Medical History Alcohol abuse Alcohol use Arthritis Asthma Colitis Constipation Gastric reflux Heartburn Hemorrhoids History of diverticulitis History of flexible sigmoidoscopy History of steroid therapy Non-smoker PONV (postoperative nausea and vomiting) Sigmoid stricture Wears glasses Home Medications levonorgestrel-ethinyl estradiol 0.1 mg-20 mcg tablet (Sronyx) 1 tab PO DAILY PRN HORMONE 04/18/23 [History Last Taken Unknown] prednisolone sodium phosphate 15 mg/5 mL (3 mg/mL) oral solution 15 mg PO BID PRN PRN MOUTH ULCERS 05/01/23 [History Last Taken Unknown] hydrocortisone 2.5 % topical cream with perineal applicator (Proctosol HC) 1 applic CA BID #30 grams 06/15/23 [Rx Last Taken Unknown] omeprazole 20 mg capsule,delayed release 20 mg PO DAILY #30 CAPSULES 07/04/23 [Rx Last Taken Unknown] oxycodone-acetaminophen 5 mg-325 mg tablet (Percocet) 1 tab PO Q8H PRN pain 3 days #10 tabs 07/04/23 [Rx Last Taken Unknown] Allergy/AdvReac Type Severity Reaction Status Date / Time amoxicillin Allergy Hives, Verified 06/11/23 13:21 tongue swelling Family History Father Heart disease Surgical History S/P bilateral breast implants S/P colectomy S/P ERCP S/P laparoscopic cholecystectomy S/P plastic surgery Social History Smoking Status: Never smoker alcohol intake: current alcohol intake frequency: holidays/special occasions only substance use type: does not use ROS ROS ED Constitutional Constitutional ED: Denies chills or fever(s) Eyes Eyes: Denies blurry vision or change in vision ENT ENT ED: Denies rhinorrhea or sore throat Cardiovascular Cardiovascular: Denies chest pain or palpitations Respiratory/Chest Respiratory/Chest: Denies cough or dyspnea Gastrointestinal Gastrointestinal: Reports nausea; Denies vomiting Genitourinary Genitourinary ED: Denies dysuria or hematuria Musculoskeletal Musculoskeletal: Reports back pain; Denies neck pain Integumentary Denies abscess or rash Neurologic Neurologic: Denies headache(s) or weakness Allergic/Immunologic Allergic/Immunologic ED: Denies mouth swelling or urticaria EXAM Physical Exam Const Vital Signs: 07/04/23 07:17 07/04/23 12:00 Temperature 97.6 F L Temperature Source Temporal Pulse Rate 101 H 72 Respiratory Rate 22 H 16 Blood Pressure 143/89 H 124/78 H Blood Pressure Mean 107 93 Pulse Ox 99 98 Oxygen Delivery Method Room Air Positive well nourished and well developed General Appearance ED: well developed and NAD HEENT Reports moist mucous membranes Neck supple and no JVD Resp normal respiratory effort and clear to auscultation bilaterally Cardio regular rate and regular rhythm GI non-tender and non-distended Palpation: soft Back/Spine General Back: CVA tenderness left Neuro oriented x3, CN's II-XII intact bilaterally and no sensory deficits noted Sensorium / Orientation: alert Motor Exam: strength 5/5 throughout Psych mental status grossly normal Skin no rashes or lesions noted Skin Narrative: Abdominal incisions are healing well. There is no sign of any infection of the incisions. There is no tenderness at the incision sites. MDM MDM MDM Narrative Medical decision making narrative: Differential diagnosis includes ureteral calculus, pyelonephritis, stent malfunction, urinary tract infection, and gastroenteritis. CBC will be obtained to assess for leukocytosis and anemia. Basic metabolic profile will be obtained to assess for electrolyte abnormality and renal function. Urinalysis will be obtained to assess for urinary tract infection and hematuria. CT scan of the abdomen pelvis will be obtained to assess for ureteral calculus and stent placement. Lab Data Attestation: I reviewed the patient's lab results. Lab results narrative: CBC was reviewed and was within normal limits. Basic metabolic profile was reviewed and was within normal limits. Urinalysis is reviewed. There is no evidence of urinary tract infection or hematuria. Labs: Laboratory Results - last 24 hr 07/04/23 07/04/23 08:05 08:15 WBC 10.8 RBC 4.61 Hgb 13.8 Hct 42.4 MCV 92.0 MCH 29.9 MCHC 32.5 RDW Std Deviation 45.9 H RDW Coeff of Noé 13.5 Plt Count 349 MPV 11.5 Immature Gran % (Auto) 0.500 Neut % (Auto) 82.2 H Lymph % (Auto) 11.6 L [place] % (Auto) 5.3 Eos % (Auto) 0.1 Baso % (Auto) 0.3 Absolute Neuts (auto) 8.9 H Absolute Lymphs (auto) 1.26 Nucleated RBC % 0 Sodium 140 Potassium 4.0 Chloride 111 H Carbon Dioxide 23.0 Anion Gap 6 BUN 16 Creatinine 0.88 Est GFR (MDRD) Af Amer 83 Est GFR (MDRD) Non-Af 68 BUN/Creatinine Ratio 18.2 Glucose 116 H Calcium 9.6 Urine Color Yellow Urine Clarity Clear Urine pH 5.0 Ur Specific [place] 1.020 Urine Protein 15 H Urine Glucose (UA) Normal Urine Ketones 5 H Urine Occult Blood 25 H Urine Nitrite Negative Urine Bilirubin Negative Urine Urobilinogen Normal Ur Leukocyte Esterase Negative Urine RBC 0-5 SEEN Urine WBC 0-5 SEEN Ur Squamous Epith Cells 5-10 SEEN Urine Bacteria RARE Urine Mucus RARE Radiography Diagnostic Testing: Clinical Impression(s) from Imaging Studies Abdomen/Pelvis CT 07/04/23 08:01 IMPRESSION: Status post cholecystectomy. Status post resection of the sigmoid colon and anastomosis. Stable low density nodule in the left adrenal gland. Calcified hepatic and splenic granulomas. No evidence of a ureteral obstruction. Electronically Signed: Moo Shook MD at 9:13 EST , Abdomen/Pelvis CT 07/04/23 10:29 IMPRESSION: There has been no change since prior study done earlier today. Electronically Signed: Moo Shook MD at 13:15 EST , CT scan of the abdomen pelvis was obtained. There is prior resection of the sigmoid colon and anastomosis. There is a prior cholecystectomy. There is no evidence of ureteral obstruction or calculus. This was interpreted by the radiologist and was also dependently reviewed by myself. Repeat CT scan of the abdomen pelvis with oral and IV contrast was obtained. There is no acute abnormality noted. There is no change from previous CT scan. This was interpreted by the radiologist and was also independently reviewed by myself. Treatment and Re-Evaluation :: Patient was given IV fluids, morphine, and Zofran. Patient was still having pain. Patient was given a repeat injection of morphine and an injection of Toradol. Patient is starting to feel somewhat better. Patient was advised of her findings. I discussed the case with Dr. Wallace. She recommended obtaining CT scan of the abdomen and pelvis with oral and IV contrast. This was ordered. Patient was more comfortable on reevaluation. Patient was advised of her findings. Case was discussed with Dr. Wallace again. She will have the patient follow-up in 5 to 7 days. Patient states she has an appointment next week. Patient was given prescription for Percocet and omeprazole. Patient was instructed to return if worse in any way. Patient understood and was agreeable with the plan. All questions were answered. Discharge Plan Triage Chief Complaint: Flank Pain ED Provider: Jass Byrne Dx/Rx/DC Orders Clinical Impression: Acute abdominal pain in left flank, S/P colectomy Instructions: ED Flank Pain, Uncertain Cause, ED Pain, Acute, Uncertain Cause Prescriptions: New oxycodone-acetaminophen [Percocet] 5-325 mg tablet 1 tab PO Q8H PRN (Reason: pain) 3 Days Qty: 10 0RF omeprazole [omeprazole] 20 mg capsule,delayed release(DR/EC) 20 mg PO DAILY Qty: 30 0RF No Action levonorgestrel-ethinyl estrad [Sronyx] 0.1-20 mg-mcg tablet 1 tab PO DAILY PRN (Reason: HORMONE ) prednisolone sodium phosphate 15 mg/5 mL (3 mg/mL) solution 15 mg PO BID PRN PRN (Reason: MOUTH ULCERS) Patient Comments: TAKE 5 ML TWO TIMES DAILY hydrocortisone [Proctosol HC] 2.5 % cream with perineal applicator 1 applic CA BID Qty: 30 0RF Rx Instructions: apply to affected area Primary Care Provider: Care Physician,No Primary Referrals: Mirza Serrato MD [Med Staff - Active Staff] - Keep [facility] appointment Care Physician,No Primary [Primary Care Provider] - Disposition Disposition: Home, Self Care
--- NOTE | 2023-07-04 08:01 | CT_ITS ---
STUDY: CT ABDOMEN AND PELVIS WITHOUT CONTRAST REASON FOR EXAM: Female, 68 years old. LEFT FLANK PAIN. Prior colon resection. RADIATION DOSAGE (If Supplied By Facility): CTDIvol = ( 7.79 ) mGy, DLP = ( 350.44 ) mGycm TECHNIQUE: Transaxial images were obtained from the dome of the diaphragm to the symphysis pubis without oral contrast, and without intravenous contrast. Sagittal and coronal images were reconstructed. Individualized dose optimization techniques were used for this CT. COMPARISON: Comparison is made with prior study February 08, 2022. FINDINGS: Bilateral breast implants are seen. Calcified granuloma in the medial aspect of the right lower lobe. The visualized portions of the heart are within normal limits. Scattered hepatic calcified granulomas. Patient is status post cholecystectomy. There are multiple benign calcified granulomata of the spleen. Normal pancreas. There is a small, circumscribed, smooth, low attenuation left adrenal mass, consistent with an adrenal adenoma. This measures 1.9 cm x 2.2 cm. This is unchanged. Normal right adrenal gland. Normal right kidney. Normal left kidney. No evidence of ureteral obstruction. Normal visualized stomach. Normal small intestine. Surgical anastomosis is seen in the region of the sigmoid colon. The appendix is visualized and appears normal. Normal abdominal aorta. Normal inferior vena cava. Normal retroperitoneum. Normal urinary bladder. Calcified phleboliths are seen in the pelvis. Normal abdominal wall. There are diffuse degenerative changes of the visualized lumbar spine. Dextroscoliosis. CT/Abdomen/Pelvis without Cont IMPRESSION: Status post cholecystectomy. Status post resection of the sigmoid colon and anastomosis. Stable low density nodule in the left adrenal gland. Calcified hepatic and splenic granulomas. No evidence of a ureteral obstruction. Electronically Signed: Moo Shook MD at 9:13 EST ,
[2023-07-04 08:15] LABS: Absolute Lymphocyte Count 1.26 X10^3/uL (0.83-4.51); Absolute Neutrophil Count 8.9 X10^3/uL (2.0-7.7); Basophil# 0.03 X10^3/uL; Basophil% 0.3 % (0-1); Eosinophil# 0.01 X10^3/uL; Eosinophils% 0.1 % (0-5); Hematocrit 42.4 % (37-47); Hemoglobin 13.8 g/dL (12.0-15.0); Lymphocyte # 1.26 X10^3/ul (0.83-4.51); Lymphocyte % 11.6 % (19-41); Mean Corp Hgb Conc 32.5 g/dL (32-36); Mean Corpuscular Hgb 29.9 pg (27.0-32.0); Mean Platelet Vol. 11.5 fl (6.2-12.0); Monocyte# 0.57 X10^3/uL; Monocyte% 5.3 % (0-10); NRBC Flagged by Analyzer 0 % (0-5); Neutrophil # 8.92 X10^3/uL (2.7-7.7); Neutrophil % 82.2 % (47-70); Platelet Count 349 K/mm3 (150-450); RBC Distribution Width CV 13.5 % (11.6-14.6); RBC Distribution Width SD 45.9 fl (35.1-43.9); Red Blood Count 4.61 M/mm3 (4.2-5.4); White Blood Count 10.8 K/mm3 (4.4-11.0)
--- OUTSIDE RECORDS SUMMARY | 2023-07-04 08:17 | XMS RPT_ITS | CCD ---
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 Name Role Phone Unavailable Primary Care Provider UnavailAZ Pritchard Attending Unavailable MICHAEL CAMEJO Attending Unavailable MATTY BECKER Primary Care Unavailable Matty Becker Primary Care Provider [phone] Allergies Allergy Classification Reported Allergen(s) Allergy Type Date of Onset Reaction(s) Facility (1 source) Penicillins; Translations: [PENICILLINS] Propensity to adverse reactions to drug (disorder) 7 [facility] Medications Completed/Discontinued Medications Medication Drug Class(es) [...] Start: 06-06-2022 End: 06-06-2022 ambulatory MICHAEL CAMEJO [facility] Start: 05-10-2022 End: 05-11-2022 ambulatory AZ UPTON Facility:[facility] Start: 04-26-2022 Telephone encounter Michael mccabe MD Work Phone: [facility]astic [facility] Procedures Date Procedure Procedure Detail Performing Clinician Start: 11-23-2021 Mammography Michael mccabe MD Work Phone: Plan of Treatment Date Care Activity Detail Author Start: 01-05-2023 Influenza vaccination Influenz a Vaccine (Season Ended) [facility] Start: 11-23-2022 Screening for malign ant neoplasm of breast Mammogram [facility] Start: 2022 ADVANCE DIRECTIVE DISCUSSION ADVANCE DIRECTIVE DISCUSSION [facility] Start: 2022 BONE DENSITY BONE DENSITY [facility] Start: 2022 Pneumococcal Vaccine : 65+ Years (1 - PCV) Pneumococcal Vaccine: 65+ Years (1 - PCV) [facility] Start: 2022 PNEUMOCOCCAL: 65+ (1 - PCV) PNEUMOCOCCAL: 65+ (1 - PCV) [facility] Start: 01-05-2022 Influenza vaccination INFLUENZA (#1) [facility] Start: 05-07-2021 DEPRESSION ASSESSMENT DEPRESSION ASS ESSMENT [facility] Start: 2007 SHINGRIX VACCINE (1 of 2) SHINGRIX V ACCINE (1 of 2) [facility] Start: 2007 Zoster Vaccines (1 of 2) Zoster Vacc marcus (1 of 2) [facility] Start: 2002 COLOGUARD (FIT-DNA) COLOGUARD (FIT-D NA) [facility] Start: 2002 Colonoscopy COLONOSCOPY [facility] Start: 2002 COLORECTAL CANCER SCREENING COLORECTAL CANCER SCREENING [facility] Start: [address] COLONOGRAPHY [facility] Start: 2002 DIABETES SCREEN DIABETES SCREEN [facility] Start: 2002 FECAL OCCULT BLOOD FECAL OCCULT BLOO D [facility] Start: 2002 LIPID SCREEN LIPID SCREEN [facility] Start: 2002 SIGMOIDOSCOPY SIGMOIDOSCOPY [facility] Start: 1997 Mammography MAMMOGRAM [facility] Start: 1987 Screening for malign ant neoplasm of cervix [facility] Start: 1978 Screening for malign ant neoplasm of cervix Pap Smear [facility] Start: 02-08-1976 DTaP/Tdap/Td Vaccine s (1 - Tdap) DTaP/Tdap/Td Vaccines (1 - Tdap) [facility] Start: 02-08-1976 Urine microalbumin profile DTAP,TDAP ,TD (1 - Tdap) [facility] Start: 1975 Diabetes mellitus screening Diabetes Screening [facility] Start: 1975 HEPATITIS C SCREENING HEPATITIS C [facility] Start: 1975 Hepatitis C screening Hepatitis C [facility] Start: 1975 HIV SCREENING HIV SCREENING Mandy lagos [facility] Start: 1957 COVID-19 VACCINE (#1) COVID-19 VACCI NE (#1) [facility] Start: 1957 Annual wellness visit Medicare Initial Physical (IPPE) [facility] Start: 1957 Hepatitis B Vaccines (1 of 3 - 3-dose series) Hepatitis B Vaccines (1 of 3 - 3-dose series) [facility] Start: 1957 Medicare Annual Well ness (AWV) Medicare Annual Wellness (AWV) [facility] Start: 1957 Screening for malign ant neoplasm of colon [facility] Start: 1957 Screening for osteoporosis Bone Dens ity Scan [facility] Payers Date Payer Category Payer Medicare 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 MMO [employer] [id number] 1997-Present [phone] [address] [place] [address] Indemnity [id number] Social History Date Type Detail [facility] consumption unknown [facility] Start: 1955 Sex Assigned At Not on file C [facility] Tobacco smoking stat [facility] Never smoked tobacco [facility] Start: 08-18-2021 Alcohol intake Ex-drinker (finding) [facility] Start: 05-27-2022 End: 06-06-2022 Exposure to SARS-CoV-2 (event) Not sure [facility] Clinical Note 06-06-2022 Note Date & Type [...] has had worsening pain with activity including attendant honor bar and range of motion. Patient denies any [...] maneuver and the pain is exacerbated by attendant honor bar. Collateral ligaments appear intact EXTREMITIES: ROM intact [...] benefits of surgical intervention. Michael Camejo MD, #[id number] [facility] Progress note 05-10-2022 Note Date & Type Note Facility 05-10-2022 Note HNO ID: [id number] Author: Az Upton MD Service: ? 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 Az Upton MD [facility] Telephone encounter Note 04-26-2022 Telephone Encounter - Shira Mas MA - 04/26/2022 2:36 PM EST Note Date & Type Note Facility 04-26-2022 Telephone encounter Note Form atting of this note might be different from the original. Pnt wants to have botox and a thumb injection. She will need 2 separate appts. Call tranferred to as the pnt was upset about this. [facility] Note 04-26-2022 Telephone Encounter - Shira Mas [...] Medication Name: n/a documented in this encounter [facility] Telephone encounter Note 04-26-2022 Telephone Encounter - [...] or prosecute any alcohol or drug abuse patient.[facility] the event this information is protected by the Federal Confidentiality of Alcohol and Drug Abuse Patient Records regulations: The Federal rules restrict any use of the information to criminally investigate or prosecute any alcohol or drug abuse patient.[facility] the event this information is protected by the Federal Confidentiality of Alcohol and Drug Abuse Patient Records regulations: The Federal rules restrict any use of the information to criminally investigate or prosecute any alcohol or drug abuse patient.[facility] INFORMATION SOURCE (unrecogn ized section and content) DATE CREATED AUTHOR AUTHOR'S ORGANIZ ATION 05/13/2022 [facility] DATE CREATED AUTHOR AUTHOR'S ORGANIZ ATION 06/09/2022 [facility] Reason for Visit (unrecogniz [...] BE BASED ON THE PRIMARY CLINICAL RECORDS. [employer] [facility] provides no warranty or guarantee of the accuracy or completeness of information in this document.
[2023-07-04] MEDS: Ondansetron 4 MG/2 ML Vial IV (08:23)
[2023-07-04] MEDS: Morphine 4 MG/ML Syringe IV ×2 (08:23→09:48)
[2023-07-04] MEDS: 0.9% Normal Saline (1000mL) 1,000 ML 1000 ML IV (08:23)
[2023-07-04 08:26] LABS: Color, Urine Yellow (Yellow); Glucose, Dipstick Normal (Normal); Ketone-Dipstick 5 mg/dl (Negative); Leukocyte Esterase-Dipstick Negative /ul (Negative); Nitrite-Dipstick Negative (Negative); Occult Blood-Urine 25 /ul (Negative); Protein-Dipstick 15 mg/dl (Negative); Urine Bilirubin Dipstick Negative (Negative); Urine Clarity Clear (Clear); Urine Urobilinogen Normal (Normal)
[2023-07-04 08:29] LABS: Anion Gap 6 (5-15); BUN 16 mg/dL (7-18); BUN/Creat Ratio 18.2 RATIO (10-20); Calcium,Total 9.6 mg/dL (8.5-10.1); Chloride 111 mmol/L (98-107); Creatinine, Serum 0.88 mg/dL (0.55-1.02); EST Glomerular Filtration Rate 68 mL/min (>60); Est Glom Filt Rate - Afr Amer 83 mL/min (>60); Glucose 116 mg/dL (74-106); Sodium Level 140 mmol/L (136-145)
[2023-07-04 08:38] LABS: Bacteria RARE /hpf (None Seen); Mucous, Urine RARE /hpf (<or=2+); Red Blood Cells-Urine 0-5 SEEN /hpf (0-5); Squamous Epithelial Cells - UA 5-10 SEEN /hpf (5-10); White Blood Cells 0-5 SEEN /hpf (0-5)
[2023-07-04] MEDS: Ketorolac 15 MG/ML Vial IV (09:47)
--- NOTE | 2023-07-04 10:29 | CT_ITS ---
STUDY: CT ABDOMEN AND PELVIS WITH CONTRAST REASON FOR EXAM: Female, 68 years old. Abdominal pain RADIATION DOSAGE (If Supplied By Facility): CTDIvol = ( 16.51 ) mGy, DLP = ( 743.19 ) mGycm TECHNIQUE: Transaxial images were obtained from the dome of the diaphragm to the symphysis pubis without oral contrast. Oral and amp; IV Gastrografin and amp; 100mL Isovue-300 was administered. Sagittal and coronal images were reconstructed. Individualized dose optimization techniques were used for this CT. COMPARISON: Comparison is made with prior study done earlier in the day. FINDINGS: Stable calcified granuloma in the right lower lobe. The visualized portions of the heart are within normal limits. Scattered calcified hepatic granulomas. Minimal degree of central intrahepatic biliary ductal dilatation. There are surgical clips in the gallbladder fossa consistent with a prior cholecystectomy. There are multiple benign calcified granulomata of the spleen. Normal pancreas. There is a small, circumscribed, smooth, low attenuation left adrenal mass, consistent with an adrenal adenoma. This is unchanged. Normal right adrenal gland. Normal right kidney. Normal left kidney. Normal visualized stomach. Normal small intestine. Surgical anastomosis seen at the level of the sigmoid colon. The appendix is visualized and appears normal. Normal abdominal aorta. Normal inferior vena cava. There is small retroperitoneal lymphadenopathy with enlarged nodes no greater than 10mm in the short axis diameter. Normal urinary bladder. Calcified phleboliths is seen in the pelvis. Normal abdominal wall. There are degenerative changes of the visualized lumbar spine. CT/Abdomen/Pelvis WITH Contrast IMPRESSION: There has been no change since prior study done earlier today. Electronically Signed: Moo Shook MD at 13:15 EST ,
[2023-07-04 12:00] VITALS: BP 124/78; PULSE 72; RESP 16; O2SAT 98
[2023-07-04 14:43] VITALS: BP 137/79; PULSE 78; RESP 16; TEMP 36.6; O2SAT 98
== END 2023-07-04 14:44 | disposition home or self-care (01) ==
PROVIDERS: Emergency Provider Emergency Medicine; Visit Provider Emergency Medicine
DX: R10.9 Unspecified abdominal pain (principal); Z90.49 Acquired absence of other specified parts of digestive tract
CPT/HCPCS: 74176; 74177; 80048; 81001; 85025; 96361; 96374; 96375; 96376; 99283; J7030; Q9967; A4216; J2405

== ENCOUNTER → 2024-10-07 | Outpatient (CLI) | payer MEDICARE, SELFPAY ==
--- NOTE | 2024-10-07 14:10 | BI_ITS ---
EXAM: SCRN MAMM (CAD)W/EARLE BILAT DATE: 10/07/2024 CLINICAL HISTORY: F, Age 69 y/o , SCREENING BREAST CANCER RISK ASSESSMENT: Na TECHNIQUE: Bilateral screening digital breast tomosynthesis with 2D and 3D images. Computer aided detection. COMPARISON: Prior exam(s) were compared FINDINGS: TISSUE DENSITY: The breast tissue is heterogenously dense, which may obscure small masses. Bilateral Breast Mammographic Findings: Bilateral breast implants are present. No suspicious masses, calcifications or other abnormalities are identified. BI/SCRN MAMM (CAD)W/EARLE BILAT IMPRESSION: OVERALL FINAL ASSESSMENT: BIRADS 2 BENIGN FINDING RECOMMENDATION: Routine annual follow-up in 1 Year A letter with findings and recommendations will be mailed to the patient. Reading Location: [id number]
== END | disposition home or self-care (01) ==
LOC: OPBI 14:08
PROVIDERS: Referring Provider Obstetrics & Gynecology; Visit Provider Obstetrics & Gynecology
DX: Z12.31 Encounter for screening mammogram for malignant neoplasm of breast (principal)
CPT/HCPCS: 77063; 77067